=== PATIENT | male | born 1965 | race African-American/Black ===

== ENCOUNTER 2017-07-26 22:40 | Inpatient (IN) | payer SELFPAY ==
[2017-07-26 22:58] VITALS: BMI 35.5
[2017-07-26] MEDS ORDERED: ALBUTEROL SO4 2.5/IPRATROPIUM 0.5 INH SOL 3 ML VIAL.NEB. NEB ONE (23:41)
[2017-07-26] MEDS ORDERED: predniSONE 20 MG TABLET (UD) PO ONE (23:43)
--- NOTE | 2017-07-26 23:43 | PDOC ---
Attending Attestation - Resident Resident Name: Bin Jacobsen - ED Attending Attestation I have performed the following: I have examined & evaluated the patient, The case was reviewed & discussed with the resident, I agree w/resident's findings & plan, Exceptions are as noted - HPI HPI: 07/27/17 01:32 52 yo male p/w low grade fever,productive cough so forceful he vomits. Low grade temp social history +tobacco ,5 cigs daily, drnks etoh daily 07/27/17 16:38 52 yo male p/w severe persistent cough resulting in vomiting -HEENT wnl neck -supple lungs rhochi,scattered wheeze upon initial presentation cvs tachycardia abd soft,nontender ext no edema neuro axox3 ,no gross focal neuro deficits - Physicial Exam PE: 07/27/17 01:35 52 yo male post tussis vomiting lungs +wheezing,rhonchi cvs tachcardia abd nontender ext no deformities neuro alert,ambulatory - Medical Decision Making 07/27/17 01:42 pt received resp treatments and improved,he has leukocytosis and severe coughing , left base infiltrates and will be admitted
[2017-07-26] MEDS ORDERED: ONDANSETRON 4 MG/2 ML VIAL IVPUSH ONE (23:45)
[2017-07-26] MEDS ORDERED: ONDANSETRON 4 MG/2 ML VIAL ONE (23:58)
[2017-07-26] MEDS ORDERED: predniSONE 20 MG TABLET (UD) ONE (23:58)
[2017-07-27 00:08] LABS: BASOPHIL 0.7 % (0-2.0); EOSINOPHIL 2.3 % (0-4.5); MCHC 33.6 g/dl (32.0-35.9); MEAN CELL VOLUME 92.3 fl (80-96); NEUTROPHILS 74.4 % (42.8-82.8); PLATELET COUNT 259 K/MM3 (134-434); RDW 13.7 % (11.9-15.9); WHITE BLOOD COUNT 16.4 K/mm3 (4.0-10.0)
[2017-07-27 00:23] LABS: ALBUMIN 3.5 g/dl (3.4-5.0); ANION GAP 11 (8-16); BILIRUBIN,TOTAL 0.6 mg/dL (0.2-1.0); CALCIUM 8.9 mg/dL (8.5-10.1); CO2 25 mmol/L (21-32); CREATININE 1.3 mg/dL (0.7-1.3); GLUCOSE,RANDOM 142 mg/dL (74-106); SGOT/AST 15 U/L (15-37); SGPT/ALT 26 U/L (12-78); TOT PROT 6.9 g/dl (6.4-8.2)
[2017-07-27 00:24] LABS: ALK PHOS 98 U/L (45-117)
--- NOTE | 2017-07-27 00:25 | PDOC ---
History of Present Illness - General Chief Complaint: Shortness of Breath Stated Complaint: ASTHMA/DIFFICULTY BREATHING Time Seen by Provider: 07/26/17 23:34 History Source: Patient Exam Limitations: No Limitations - History of Present Illness Initial Comments: 07/27/17 00:23 Patient is a 52M with history of etoh abuse and asthma here today complaining of shortness of breath with cough for the past 2 days. He says that he's coughed so much that he's vomited and has associated vomiting, chest pain and abdominal pain. He denies fevers and chills. He says that he took albuterol which provided temporary relief. He states that his advair was effective at preventing his asthma attacks, but he's run out of his medications and does not have a PCP. He states that he drinks 8 beers per day. He denies history of withdrawal and seizures. He denies other drug use. Past History - Past Medical History Allergies/Adverse Reactions: Allergies Allergy/AdvReac Type Severity Reaction Status Date / Time No Known Allergies Allergy Verified 07/26/17 22:55 Asthma: Yes - Suicide/Smoking/Psychosocial Hx Smoking History: Current some day smoker Number of Cigarettes Smoked Daily: 5 Information on smoking cessation initiated: No Hx Alcohol Use: No Drug/Substance Use Hx: No Substance Use Type: None Review of Systems - Review of Systems Comments:: 07/27/17 01:49 GENERAL/CONSTITUTIONAL: No fever or chills. No weakness. HEAD, EYES, EARS, NOSE AND THROAT: No change in vision. No ear pain or discharge. No sore throat. CARDIOVASCULAR: Positive for chest pain and shortness of breath RESPIRATORY: Positive for cough and wheezing, negative for hemoptysis GASTROINTESTINAL: Positive for vomiting. Negative for diarrhea or constipation. GENITOURINARY: No dysuria, frequency, or change in urination. SKIN: No rash NEUROLOGIC: No headache, vertigo, loss of consciousness, or change in strength/ sensation. ENDOCRINE: No increased thirst. No abnormal weight change ALLERGIC/IMMUNOLOGIC: No hives or skin allergy. *Physical Exam - Vital Signs Last Vital Signs Temp Pulse Resp BP Pulse Ox 99.6 F 121 H 22 119/62 97 07/26/17 22:56 07/26/17 22:56 07/26/17 22:56 07/26/17 22:56 07/26/17 22:56 - Physical Exam Comments: 07/27/17 01:51 GENERAL: Awake, alert, and fully oriented, in moderate respiratory distress HEAD: No signs of trauma, normocephalic, atraumatic EYES: PERRLA, EOMI, sclera anicteric, conjunctiva clear ENT: Auricles normal inspection, hearing grossly normal, nares patent, oropharynx clear without exudates. Moist mucosa NECK: Normal ROM, supple, no lymphadenopathy, JVD, or masses LUNGS: Moderate respiratory distress, speaks full sentences, decreased breath sounds bilaterally HEART: Regular rate and rhythm, normal S1 and S2, no murmurs, rubs or gallops, peripheral pulses normal and equal bilaterally. ABDOMEN: Soft, nontender, normoactive bowel sounds. No guarding, no rebound. No masses EXTREMITIES: Normal inspection, Normal range of motion, no edema. No clubbing or cyanosis. NEUROLOGICAL: Cranial nerves II through XII grossly intact. Normal speech, no focal sensorimotor deficits SKIN: Warm, Dry, normal turgor, no rashes or lesions noted. ED Treatment Course - LABORATORY CBC & Chemistry Diagram: 07/26/17 23:45 07/26/17 23:45 - ADDITIONAL ORDERS Additional order review: 07/26/17 23:45 RBC 4.47 MCV 92.3 MCHC 33.6 RDW 13.7 MPV 8.0 Neutrophils % 74.4 Lymphocytes % 11.0 Monocytes % 11.6 H Eosinophils % 2.3 Basophils % 0.7 - RADIOLOGY Radiology Studies Ordered: Category Date Time Status CHEST X-RAY PORTABLE* [RAD] Stat Radiology 07/26/17 23:41 Taken - Medications Given in the ED: ED Medications Discontinued Medications Generic Name Dose Route Start Last Admin Trade Name Freq PRN Reason Stop Dose Admin Albuterol/Ipratropium 1 amp 07/26/17 23:41 07/26/17 23:56 Duoneb - NEB 07/26/17 23:42 1 amp ONCE ONE Administration Ondansetron HCl 4 mg 07/26/17 23:45 07/27/17 00:19 Zofran Injection IVPUSH 07/26/17 23:46 4 mg ONCE ONE Administration Medical Decision Making - Medical Decision Making 07/27/17 01:52 52M with history of asthma and alcohol abuse here today complaining of shortness of breath. Tachycardic, satting 93% on room air during examination, audibly wheezing. Had episode of vomiting while in the department after coughing. Differential diagnosis includes, but is not limited to: asthma exacerbation, pneumonia, bronchitis. Given steroid, duonebs, zofran. CXR shows hyperinflation of lungs with lower left lung infiltrate. Given azithromycin and ceftriaxone. Patient is improved after getting duonebs. ECG shows sinus tachycardia, t wave inversions in II, III, aVF, V4-V6. 07/27/17 01:59 Laboratory Tests 07/26/17 23:45 WBC 16.4 H Hgb 13.9 Hct 41.3 Plt Count 259 CBC shows white count, CMP is normal. *DC/Admit/Observation/Transfer Diagnosis at time of Disposition: Pneumonia - Discharge Dispostion Condition at time of disposition: Stable Admit: Yes
[2017-07-27] MEDS: ALBUTEROL SO4 2.5/IPRATROPIUM 0.5 INH SOL 3 ML VIAL.NEB. NEB SCH ×2 (00:29→00:50)
[2017-07-27] MEDS ORDERED: CEFTRIAXONE 1 GM in DEXTROSE 5%-WATER - 50 ML IVPB ONE (00:47)
[2017-07-27] MEDS ORDERED: AZITHROMYCIN 500 MG TABLET PO ONE (00:47)
[2017-07-27] MEDS ORDERED: CEFTRIAXONE 50 ML ONE (00:51)
[2017-07-27] MEDS ORDERED: ACETAMINOPHEN 500 MG TABLET (FP) PO ONE (01:33)
--- NOTE | 2017-07-27 02:07 | PN ---
Teaching Attending Note Name of Resident: Abelardo Pelaez ATTENDING PHYSICIAN STATEMENT I saw and evaluated the patient. I reviewed the resident's note and discussed the case with the resident. I agree with the resident's findings and plan as documented. SUBJECTIVE: 52 M with hx of asthma who presents with shortness of breath, cough and post- tussive emesis. No chest pain or pressure. OBJECTIVE: Physical: VS: Vital Signs Period Temp Pulse Resp BP Sys/Curran Pulse Ox Last 24 Hr 99.6 F 121 22 119/62 97 GEN: NAD, Resting in bed, able to speak full sentences HEENT: NCAT, PERRL, Throat without erythema or exudates CARD: RRR S1, S2 RESP: Diffuse Ronchi all trimble ABD: BS X4, NTD to palpation EXT: - C/C/E CBCD WBC 16.4 K/mm3 (4.0-10.0) H 07/26/17 23:45 RBC 4.47 M/mm3 (4.00-5.60) 07/26/17 23:45 Hgb 13.9 GM/dL (11.7-16.9) 07/26/17 23:45 Hct 41.3 % (35.4-49) 07/26/17 23:45 MCV 92.3 fl (80-96) 07/26/17 23:45 MCHC 33.6 g/dl (32.0-35.9) 07/26/17 23:45 RDW 13.7 % (11.9-15.9) 07/26/17 23:45 Plt Count 259 K/MM3 (134-434) 07/26/17 23:45 MPV 8.0 fl (7.5-11.1) 07/26/17 23:45 CMP Sodium 138 mmol/L (136-145) 07/26/17 23:45 Potassium 3.6 mmol/L (3.5-5.1) 07/26/17 23:45 Chloride 102 mmol/L (98-107) 07/26/17 23:45 Carbon Dioxide 25 mmol/L (21-32) 07/26/17 23:45 Anion Gap 11 (8-16) 07/26/17 23:45 BUN 17 mg/dL (7-18) 07/26/17 23:45 Creatinine 1.3 mg/dL (0.7-1.3) 07/26/17 23:45 Creat Clearance w eGFR 57.75 (>60) 07/26/17 23:45 Random Glucose 142 mg/dL (74-106) H 07/26/17 23:45 Calcium 8.9 mg/dL (8.5-10.1) 07/26/17 23:45 Total Bilirubin 0.6 mg/dL (0.2-1.0) 07/26/17 23:45 AST 15 U/L (15-37) 07/26/17 23:45 ALT 26 U/L (12-78) 07/26/17 23:45 Alkaline Phosphatase 98 U/L (45-117) 07/26/17 23:45 Total Protein 6.9 g/dl (6.4-8.2) 07/26/17 23:45 Albumin 3.5 g/dl (3.4-5.0) 07/26/17 23:45 CXR: ? LLL infilterate- Await final read EKG: NSR, TWI lateral leads ASSESSMENT AND PLAN: 52 M with hx of asthma who presents with shortness of breath being admitted for acute exacerbation of asthma 1.) Acute Exacerbation of Asthma - Nebs ATC and Prn - C/W Prednisone 60 daily and then taper - c/w Home meds - S/P mag in ED - Peak Flow 2.) Pneumonia ? Possible LLL infilterate DDx:? Pertusis - Less likely Sepsis as pt. is on steriod taper (Tachy from neb) - Cef and Azithro given in ED - Would hold off on more abx 3.) EULALIA - Gentle Hydration - Trend 5.) Dvt PPx - Low Risk - SCD Place iN Obs
[2017-07-27] MEDS ORDERED: AZITHROMYCIN 250 MG TABLET ONE (02:43)
[2017-07-27] MEDS ORDERED: ACETAMINOPHEN 325 MG TABLET (FP) ONE (02:43)
[2017-07-27 02:46] LABS: TROPONIN I 0.02 ng/ml (0.00-0.05)
[2017-07-27] MEDS ORDERED: ALBUTEROL SO4 0.042% IH SOL 1.25 MG/3 ML VIAL.NEB NEB PRN (03:08)
--- NOTE | 2017-07-27 03:10 | HP ---
CHIEF COMPLAINT: " Worsening cough and sob x2 days" PCP: None HISTORY OF PRESENT ILLNESS: Patient is a 52 year old Male with past medical history of alcohol abuse and asthma who was recently treated at [facility] for acute exacerbation of asthma and pneumonia (per pt) presented to the ED with similar complaint he had one month ago with worsening shortness of breath and productive cough since 2 days. As per the patient, he had similar complaint about a month ago, went to [facility], where he was admitted for a week, was discharged home on prednisone taper, didn't get better, went back to [facility] and was admitted for another week and was discharged about 2 weeks ago. Since the discharge he felt a lot better but for the past 2 days he has been having shortness of breath even at rest, not relieved with albuterol inhaler and prednisone (doesn't know how much tapering dose he is on). Also complaints of cough x 2 days which has been hacking in nature, producing whitish/yellowish sputum. Coughing has been so persistent that he vomited before coming to the ED and vomited x 3 times in the ED. Vomitus contained mainly food particles, non bilious, non bloody. Denies abdominal pain, chest pain, palpitation, fever, chills, rigors or sweating. Also has burning urination and increased frequency. Urinal at bedside and the color looks dark but no gross hematuria. Has h/o constipation. Appetite decreased and sleep disturbed since illness. ER course was notable for: (1) Temp-99.6 F; Tachycardia 121 bpm; WBC 16.4, Troponin x 1 negative (2) ECG: sinus tachycardia, T wave inversions in II, III, aVF and V4-V6. (3) IV Ceftriaxone, Prednisone 60mg PO, Duoneb and Azithromycin 500mg PO Recent Travel: None PAST MEDICAL HISTORY: alcohol abuse and asthma (never been intubated but hospitalized) PAST SURGICAL HISTORY: None Social History: Smoking: Smokes around 5-6 sticks/day since many years (doesn't remember since how many years) Alcohol: 6 beers/day since many years, CAGE 0/4, not in withdrawal. Drugs: Denies Family History: Unknown Allergies No Known Allergies Allergy (Verified 07/26/17 22:55) HOME MEDICATIONS: REVIEW OF SYSTEMS CONSTITUTIONAL: Present: loss of appetite Absent: fever, chills, diaphoresis, generalized weakness, malaise, , weight change HEENT: Absent: rhinorrhea, nasal congestion, throat pain, throat swelling, difficulty swallowing, mouth swelling, ear pain, eye pain, visual changes CARDIOVASCULAR: Absent: chest pain, syncope, palpitations, irregular heart rate, lightheadedness , peripheral edema RESPIRATORY: Present: cough, shortness of breath, dyspnea with exertion, Absent: orthopnea, wheezing, stridor, hemoptysis GASTROINTESTINAL: Absent: abdominal pain, abdominal distension, nausea, vomiting, diarrhea, constipation, melena, hematochezia GENITOURINARY: Absent: dysuria, frequency, urgency, hesitancy, hematuria, flank pain, genital pain MUSCULOSKELETAL: Absent: myalgia, arthralgia, joint swelling, back pain, neck pain SKIN: Absent: rash, itching, pallor HEMATOLOGIC/IMMUNOLOGIC: Absent: easy bleeding, easy bruising, lymphadenopathy, frequent infections ENDOCRINE: Absent: unexplained weight gain, unexplained weight loss, heat intolerance, cold intolerance NEUROLOGIC: Absent: headache, focal weakness or paresthesias, dizziness, unsteady gait, seizure, mental status changes, bladder or bowel incontinence PSYCHIATRIC: Absent: anxiety, depression, suicidal or homicidal ideation, hallucinations. PHYSICAL EXAMINATION Vital Signs - 24 hr 07/26/17 22:56 Temperature 99.6 F Pulse Rate 121 H Respiratory 22 Rate Blood Pressure 119/62 O2 Sat by Pulse 97 Oximetry (%) GENERAL: Patient is sitting comfortably in bed, Awake, alert, and fully oriented , in no acute distress, can speak a full sentence. HEAD: Normal with no signs of trauma. EYES: EOM intact, no pallor or icterus. EARS, NOSE, THROAT: Ears normal. Moist mucous membranes. NECK: Supple. LUNGS: B/L Breath sounds equal, coarse breath sounds bilaterally. No wheezes, and no crackles. No accessory muscle use. HEART: Tachycardic, Regular rate and rhythm, normal S1 and S2 without murmur. ABDOMEN: Soft, nontender, not distended, normoactive bowel sounds, no guarding, no rebound, no masses. No hepatomegaly or splenomegaly. MUSCULOSKELETAL: Normal range of motion at all joints. No bony deformities or tenderness. No CVA tenderness. UPPER EXTREMITIES: 2+ pulses, warm, well-perfused. No cyanosis. No clubbing. No peripheral edema. LOWER EXTREMITIES: 2+ pulses, warm, well-perfused. No calf tenderness. No peripheral edema. NEUROLOGICAL: No facial droop, power 5/5 in all extremities, reflexes intact, Cranial nerves II-XII intact. Normal speech. Gait not observed. PSYCHIATRIC: Cooperative. Good eye contact. Appropriate mood and affect. SKIN: Vitiligo; Warm, dry, normal turgor, no rashes or lesions noted, normal capillary refill. Laboratory Results - last 24 hr 07/26/17 07/26/17 07/27/17 23:45 23:45 02:12 WBC 16.4 H RBC 4.47 Hgb 13.9 Hct 41.3 MCV 92.3 MCH 31.0 MCHC 33.6 RDW 13.7 Plt Count 259 MPV 8.0 Neutrophils % 74.4 Lymphocytes % 11.0 Monocytes % 11.6 H Eosinophils % 2.3 Basophils % 0.7 Sodium 138 Potassium 3.6 Chloride 102 Carbon Dioxide 25 Anion Gap 11 BUN 17 Creatinine 1.3 Creat Clearance w eGFR 57.75 Random Glucose 142 H Calcium 8.9 Total Bilirubin 0.6 AST 15 ALT 26 Alkaline Phosphatase 98 Creatine Kinase 252 Troponin I 0.02 Total Protein 6.9 Albumin 3.5 ASSESSMENT/PLAN: Patient is a 52 year old Male with past medical history of alcohol abuse and asthma who was recently treated at [facility] presented to the ED with similar complaint he had one month ago with worsening shortness of breath and productive cough since 2 days. # Acute exacerbation of Asthma likely secondary to Hospital acquired pneumonia Presented with worsening cough, sob, was admitted for 2 weeks in [facility] for similar complaints and discharged 2 weeks ago,on prednisone taper On arrival, Temp-99.6 F; Tachycardia 121 bpm; WBC 16.4 CXR- Likely has Left lower lobe infiltrate, official read pending Placed in Med-Surg obs In the ED received IV Ceftriaxone and Azithromycin, will continue the same abx and change tomorrow if he doesn't seem to be better. Leukocytosis likely reactive due to steroid use Albuterol Neb Q4H PRN Adavir 1puff BID (pt says he takes it at home and ran out) Prednisone 60mg tomorrow and to taper Peak expiratory flow CXR to be repeated in am. Needs pulmonary follow up as outpatient for asthma Blood culture pending Flu swab pending # Alcohol abuse CIWA score-1; CAGE 0/4 Pt says he is not in withdrawal. But if he has symptoms, will put him in [facility] protocol Alcohol cessation counseling # Vomiting likely due to persistent cough Will give IV Zofran 4mg Q8H PRN # Dysuria-r/o UTI UA and urine culture pending. # Lipid and A1c pending # FEN Not on IV fluids, can tolerate PO Electrolytes WNL, to be repeated in am Regular diet # Prophylaxis For DVT: On Heparin 5000 IU sq For GI: Not indicated # Code Status: Full Code # Dispo: Placed in Observation. Duration of stay likely 1-2 days. Illness, Investigation and Plan of care explained to the patient. He verbalized understanding. Case seen and discussed with Dr. Thayer. Visit type - Emergency Visit Emergency Visit: Yes ED Registration Date: 07/27/17 Care time: The patient presented to the Emergency Department on the above date and was hospitalized for further evaluation of their emergent condition. - New Patient This patient is new to me today: Yes Date on this admission: 07/27/17 - Critical Care Critical Care patient: No
[2017-07-27] MEDS ORDERED: ONDANSETRON 4 MG/2 ML VIAL IVPB PRN (03:38)
[2017-07-27 06:13] LABS: BASOPHIL 0.3 % (0-2.0); EOSINOPHIL 0.5 % (0-4.5); MCH 31.3 pg (25.7-33.7); MCHC 33.3 g/dl (32.0-35.9); MEAN CELL VOLUME 93.9 fl (80-96); MEAN PLT VOLUME 7.8 fl (7.5-11.1); NEUTROPHILS 87.3 % (42.8-82.8); PLATELET COUNT 250 K/MM3 (134-434); RDW 13.6 % (11.9-15.9); WHITE BLOOD COUNT 13.6 K/mm3 (4.0-10.0)
[2017-07-27 06:48] LABS: CHOLESTEROL 179 mg/dL (50-200)
[2017-07-27 06:50] LABS: ALBUMIN 3.4 g/dl (3.4-5.0); ANION GAP 11 (8-16); CALCIUM 8.9 mg/dL (8.5-10.1); CO2 27 mmol/L (21-32); GLUCOSE,RANDOM 228 mg/dL (74-106)
[2017-07-27 06:56] LABS: ALK PHOS 102 U/L (45-117); BILIRUBIN,TOTAL 0.9 mg/dL (0.2-1.0); CREATININE 1.2 mg/dL (0.7-1.3); SGOT/AST 14 U/L (15-37); SGPT/ALT 28 U/L (12-78); TOT PROT 7.1 g/dl (6.4-8.2)
[2017-07-27] MEDS ORDERED: SODIUM CHLORIDE 1,000 ML IV SCH (07:45)
[2017-07-27] MEDS ORDERED: PNEUMOC 13-VAL CONJ-DIP CRM/PF 0.5 ML DISP.SYRIN IM ONE (08:58)
--- NOTE | 2017-07-27 09:29 | PN ---
Progress Note (short form) - Note Progress Note: ID This is A 52 year old male from the admitted with severe couph causing vomiting for several days. He has a long history of asthma with a least 2 admissions 06/03-06/05 [facility] and briefly in May both times for asthma requiring steroids. Had HIV test neg and Hep C testing neg. CT of chest showed calcified pulmonary nodules with pleural thickening. PPD status unknown. Say he was fine until several days ago when he got a "cold" Denies weight loss TAMY night sweats. Lives with 2 roommates no one else ill. NO travel IN [place] many years. He smokes and drinks alcohol occ drug use marijuana. Selected Entries 07/26/17 07/27/17 22:56 07:00 Temperature 99.6 F 97.7 F Pulse Rate 121 H 93 H Respiratory 22 18 Rate Blood Pressure 119/62 118/69 O2 Sat by Pulse 97 Oximetry (%) HEENT negataive Lung Course rhonchi bilaterally Cor S1 S2 RR Abd Soft nontender Skin Vitiligo Microbiology Laboratory Tests 07/26/17 07/27/17 07/27/17 23:45 02:24 06:00 WBC 16.4 H 13.6 H Hgb 14.3 Plt Count 250 BUN Creatinine Creat Clearance w eGFR Lactic Acid 2.1 H* AST Alkaline Phosphatase 07/27/17 06:00 WBC Hgb Plt Count BUN 15 Creatinine 1.2 Creat Clearance w eGFR > 60 Lactic Acid AST 14 L Alkaline Phosphatase 102 Assessment Most likely exacerbation of asthma precipitated by viral URI Consider Pertussis given severity of the couph TB less likely Plan Do not feel we need to treat for hospital PNA Ceftriaxone and oral azithromcyin Influenza screen Pertussis PCR CT chest Quant gold Steroids Antonio MTZ Problem List - Problems (1) Pneumonia Code(s): J18.9 - PNEUMONIA, UNSPECIFIED ORGANISM (2) Asthma Code(s): J45.909 - UNSPECIFIED ASTHMA, UNCOMPLICATED
[2017-07-27] MEDS ORDERED: CEFTRIAXONE 1 GM in DEXTROSE 5%-WATER - 50 ML IVPB SCH (10:00)
[2017-07-27] MEDS ORDERED: PIPERACILLIN/TAZOB 3.375 GM/50 ML PRE-DOCKED IVPB SCH (10:00)
[2017-07-27] MEDS ORDERED: PIPERACILLIN/TAZOB 3.375 GM 3.375 GM in DEXTROSE 5%-WATER - 50 ML IVPB ONE (10:00)
[2017-07-27] MEDS ORDERED: AZITHROMYCIN IVPB 500 MG in DEXTROSE 5%-WATER - 250 ML IVPB SCH (10:00)
[2017-07-27] MEDS ORDERED: FLU VACCINE QUAD 60 MCG/0.5 ML (MDV 17-18) IM ONE (10:00)
[2017-07-27] MEDS ORDERED: DEXTROSE 5%-WATER - 50 ML IVPB ONE (10:09)
[2017-07-27] MEDS ORDERED: cefTRIAXone SODIUM 1 GM VIAL ONE (10:09)
[2017-07-27] MEDS: HEPARIN NA (PORCINE) 5,000 UNITS/ML 1ML VIAL SQ SCH ×4 (10:28→21:48)
[2017-07-27] MEDS: FLUTICASONE/SALMETEROL 100 MCG/50 MCG DISKUS IH SCH ×3 (10:28→21:48)
[2017-07-27] MEDS: AZITHROMYCIN 500 MG TABLET PO SCH (10:35)
[2017-07-27] MEDS: predniSONE 20 MG TABLET (UD) PO SCH (10:35)
[2017-07-27] MEDS: CEFTRIAXONE 1 GM in DEXTROSE 5%-WATER - 50 ML IVPB SCH (10:39)
--- NOTE | 2017-07-27 11:06 | EKG ---
Test Reason : Blood Pressure : / mmHG Vent. Rate : 105 BPM Atrial Rate : 105 BPM P-R Int : 142 ms QRS Dur : 084 ms QT Int : 346 ms P-R-T Axes : 069 033 -79 degrees QTc Int : 457 ms SINUS TACHYCARDIA POSSIBLE LEFT ATRIAL ENLARGEMENT T WAVE ABNORMALITY, CONSIDER INFEROLATERAL ISCHEMIA ABNORMAL ECG NO PREVIOUS ECGS AVAILABLE Confirmed by ANABELL RAMÍREZ MD ([id number]) on 07/27/2017 11:05:40 AM Referred By: Confirmed By:ANABELL RAMÍREZ MD
[2017-07-27 11:35] LABS: URINE APPEARANCE CLEAR; URINE BILIRUBIN NEGATIVE (NEGATIVE); URINE BLOOD NEGATIVE (NEGATIVE); URINE COLOR LTYELLOW; URINE GLUCOSE (UA) 3+ (NEGATIVE); URINE KETONE NEGATIVE (NEGATIVE); URINE NITRITE NEGATIVE (NEGATIVE); URINE PROTEIN NEGATIVE (NEGATIVE); URINE UROBILINOGEN NEGATIVE mg/dL (0.2-1.0)
--- NOTE | 2017-07-27 13:58 | CON.PULM ---
Consult Consult Specialty:: PULM/CCM Referred by:: AME Reason for Consultation:: SOB - History of Present Illness Chief Complaint: Progressive SOB History of Present Illness: 52 M, active tobacco smoker and occasional marijuana. Frequent alcohol intake. Reports long standing asthma, but I suspect more likely COPD. Never intubated. Many previous courses of prednisone, that he reports "always" makes him clinically improve. (+) snoring and likely history of Sleep Apnea. Recent admission to [facility] for AE of COPD and recently discharged. Reports being maintained on Advair, Ventolin, and prednisone. Reports history of CT chest in the past. (?) Old granulomatous disease. Denies hemoptysis / night sweats. Does report multiple episodes of coughing and hiccups that cause him to vomit. No significant travel history or sick contacts. - History Source History Provided By: Patient Limitations to Obtaining History: No Limitations - Past Medical History Pulmonary: Yes: Asthma, Bronchitis, Pneumonia, Other (Probable sleep apnea ). No: O2 Dependent, Previously Intubated - Alcohol/Substance Use Hx Alcohol Use: Yes (6 beers a day) - Smoking History Smoking history: Current some day smoker Have you smoked in the past 12 months: Yes Aproximately how many cigarettes per day: 5 Home Medications - Allergies Allergies/Adverse Reactions: Allergies Allergy/AdvReac Type Severity Reaction Status Date / Time No Known Allergies Allergy Verified 07/26/17 22:55 - Home Medications Home Medications: Ambulatory Orders Albuterol 2.5/Ipratropium 0.5 1 neb NEB QID PRN 07/27/17 Albuterol Sulfate [Proventil HFA Inhaler -] 2 inh IH QID 07/27/17 Review of Systems - Review of Systems Constitutional: reports: Diaphoresis, Fever, Malaise. denies: Chills, Night Sweats, Unintentional Wgt. Loss Eyes: reports: No Symptoms HENT: reports: No Symptoms Neck: reports: No Symptoms Cardiovascular: reports: Shortness of Breath. denies: Chest Pain, Edema Respiratory: reports: Cough, Snoring, SOB, SOB on Exertion, Wheezing. denies: Hemoptysis Gastrointestinal: reports: Vomiting Genitourinary: reports: No Symptoms Breasts: reports: No Symptoms Reported Musculoskeletal: reports: No Symptoms Integumentary: reports: No Symptoms Neurological: reports: No Symptoms Endocrine: reports: No Symptoms Hematology/Lymphatic: reports: No Symptoms Psychiatric: reports: No Symptoms Physical Exam Vital Sings: Vital Signs Temperature 96.6 F L 07/27/17 09:00 Pulse Rate 90 07/27/17 09:00 Respiratory Rate 20 07/27/17 09:00 Blood Pressure 135/74 07/27/17 09:00 O2 Sat by Pulse Oximetry (%) 95 07/27/17 09:04 Constitutional: Yes: No Distress, Obese Eyes: Yes: Conjunctiva Clear, EOM Intact HENT: Yes: Atraumatic, Normocephalic Neck: Yes: Supple, Trachea Midline Cardiovascular: Yes: Regular Rate and Rhythm Respiratory: Yes: Cough, Diminished, On Nasal O2, Rhonchi, Wheezes. No: Accessory Muscle Use, Stridor, Tachypnea ...Inspection: Yes: WNL ...Clubbing: No Gastrointestinal: Yes: Normal Bowel Sounds, Soft, Abdomen, Obese Renal/: Yes: WNL Musculoskeletal: Yes: WNL Extremities: Yes: WNL Edema: No Peripheral Pulses WNL: Yes Integumentary: Yes: WNL Neurological: Yes: WNL, Alert, Oriented ...Motor Strength: WNL Psychiatric: Yes: WNL, Alert, Oriented Labs: CBC, BMP 07/27/17 06:00 07/27/17 06:00 Imaging - Results Chest X-ray: Report Reviewed, Image Reviewed Problem List - Problems (1) COPD exacerbation Code(s): J44.1 - CHRONIC OBSTRUCTIVE PULMONARY DISEASE W (ACUTE) EXACERBATION (2) Shortness of breath Code(s): R06.02 - SHORTNESS OF BREATH (3) Obesity Code(s): E66.9 - OBESITY, UNSPECIFIED (4) Smoker Code(s): F17.200 - NICOTINE DEPENDENCE, UNSPECIFIED, UNCOMPLICATED (5) Chronic bronchitis Code(s): J42 - UNSPECIFIED CHRONIC BRONCHITIS Assessment/Plan PLAN: Prednisone daily O2 as needed No smoking / illicit substance use counseled Will need sleep apnea work up after discharge PFTs after stable as an outpatient Noted CT chest ordered Noted Quant Gold ordered BD TX VTE prophylaxis Noted empiric ABX Do not think Singulair would be helpful since he is more likely COPD On discharge can either discharge on Advair 250/50 BID or preferably a LAMA/ LABA combination Will follow Thank you. Dr Stratton
--- NOTE | 2017-07-27 15:07 | HOSP ---
Physical Examination Vital Signs: Vital Signs Temperature 96.6 F L 07/27/17 09:00 Pulse Rate 90 07/27/17 09:00 Respiratory Rate 20 07/27/17 09:00 Blood Pressure 135/74 07/27/17 09:00 O2 Sat by Pulse Oximetry (%) 95 07/27/17 09:04 Constitutional: Yes: No Distress HENT: Yes: Atraumatic Neck: Yes: Trachea Midline Cardiovascular: Yes: Regular Rate and Rhythm, S1, S2 Respiratory: Yes: Cough, On Nasal O2, Rhonchi, Other (course breath sounds) Gastrointestinal: Yes: Normal Bowel Sounds, Soft Extremities: Yes: WNL Edema: No Integumentary: Yes: Other (vitiligo) Neurological: Yes: Alert, Oriented, Cran Nerves II-XII Intact Psychiatric: Yes: WNL Labs: CBC, BMP 07/27/17 06:00 07/27/17 06:00 Hospitalist Encounter Assessment: Assessment: 52 year old male admitted with acute asthma exacerbation and worsening cough Plan: 1. Acute on chronic asthma exacerbation/ COPD - Likely viral syndrome exacerbating existing asthma, less likely pna - Ceftriaxone for COPD - Azithro for pertussis - CT chest ordered - Pertussis pcr, quant gold sent - Will need outpt sleep study - Prednisone 60mg daily (day 1) with taper - Continue advair, increase dose on discharge 2. ETOH abuse - No signs of withdrawal at this time
[2017-07-27 16:51] LABS: URINE LEUK ESTERASE Negative (NEGATIVE)
[2017-07-27] MEDS: SODIUM CHLORIDE 1,000 ML IV SCH ×2 (17:51→23:17)
[2017-07-27 18:53] LABS: HIV 1 & 2 AB NEGATIVE; HIV 1 AGp24 NEGATIVE
[2017-07-27] MEDS ORDERED: PT OWN MED DRAWER 7, Y5N ONE (21:40)
[2017-07-28] MEDS: HEPARIN NA (PORCINE) 5,000 UNITS/ML 1ML VIAL SQ SCH ×3 (06:24→21:23)
[2017-07-28] MEDS: SODIUM CHLORIDE 1,000 ML IV SCH (06:30)
[2017-07-28] MEDS ORDERED: SODIUM CHLORIDE 1,000 ML IV SCH (06:44)
[2017-07-28 07:24] LABS: BASOPHIL 0.2 % (0-2.0); EOSINOPHIL 0.9 % (0-4.5); MCH 30.8 pg (25.7-33.7); MCHC 33.2 g/dl (32.0-35.9); MEAN CELL VOLUME 92.7 fl (80-96); MEAN PLT VOLUME 8.4 fl (7.5-11.1); NEUTROPHILS 77.1 % (42.8-82.8); PLATELET COUNT 292 K/MM3 (134-434); RDW 13.6 % (11.9-15.9); WHITE BLOOD COUNT 14.6 K/mm3 (4.0-10.0)
[2017-07-28 08:31] LABS: ANION GAP 8 (8-16); CALCIUM 8.7 mg/dL (8.5-10.1); CO2 27 mmol/L (21-32); CREATININE 0.8 mg/dL (0.7-1.3); GLUCOSE,RANDOM 129 mg/dL (74-106)
[2017-07-28] MEDS ORDERED: DEXTROSE 5%-WATER - 50 ML IVPB ONE (10:39)
[2017-07-28] MEDS ORDERED: cefTRIAXone SODIUM 1 GM VIAL ONE (10:39)
[2017-07-28] MEDS: FLUTICASONE/SALMETEROL 100 MCG/50 MCG DISKUS IH SCH ×2 (11:06→21:22)
[2017-07-28] MEDS: predniSONE 20 MG TABLET (UD) PO SCH (11:08)
[2017-07-28] MEDS: AZITHROMYCIN 500 MG TABLET PO SCH (11:08)
[2017-07-28] MEDS: CEFTRIAXONE 1 GM in DEXTROSE 5%-WATER - 50 ML IVPB SCH (11:09)
--- NOTE | 2017-07-28 12:33 | PN ---
Progress Note (short form) - Note Progress Note: Subjective: The patient was seen and examined at the bedside, he reports feeling better today. Current Medications Generic Name Dose Route Start Last Admin Trade Name Les PRN Reason Stop Dose Admin Azithromycin 500 mg 07/27/17 10:00 07/28/17 11:08 Azithromycin PO 07/29/17 10:01 500 mg DAILY JOSE Administration Heparin Sodium (Porcine) 5,000 unit 07/27/17 06:00 07/28/17 06:24 Heparin - SQ Not Given TID JOSE Ceftriaxone Sodium 1 gm/ 50 mls @ 100 mls/hr 07/27/17 10:00 07/28/17 11:09 Dextrose IVPB 100 mls/hr DAILY JOSE Administration Sodium Chloride 1,000 mls @ 75 mls/hr 07/28/17 06:44 07/28/17 11:34 Normal Saline - IV 75 mls/hr ASDIR JOSE Administration Ondansetron HCl 4 mg 07/27/17 03:38 Zofran Injection IVPB Q4H PRN NAUSEA AND/OR VOMITING Prednisone 60 mg 07/27/17 10:00 07/28/17 11:08 Deltasone - PO 60 mg DAILY JOSE Administration Fluticasone/Salmeterol 1 puff 07/27/17 10:00 07/28/17 11:06 Advair 100mcg/50mcg - IH 1 puff BID JOSE Administration Objective: Vital Signs Period Temp Pulse Resp BP Sys/Curran Pulse Ox Last 24 Hr 97.8 F-97.9 F 85-97 18-20 116-150/71-102 Physical Exam: General: NAD, A&Ox3 Lungs: bilateral coarse rhonchi. Good inspiratory effort Heart: RRR, S1S2 Abd: Soft, non-tender, non-distended. Normoactive bowel sounds Ext: Warm, well-perfused Skin: Vitaligo Neuro: CN 2-12 intact CBCD WBC 14.6 K/mm3 (4.0-10.0) H 07/28/17 06:00 RBC 4.49 M/mm3 (4.00-5.60) 07/28/17 06:00 Hgb 13.8 GM/dL (11.7-16.9) 07/28/17 06:00 Hct 41.6 % (35.4-49) 07/28/17 06:00 MCV 92.7 fl (80-96) 07/28/17 06:00 MCHC 33.2 g/dl (32.0-35.9) 07/28/17 06:00 RDW 13.6 % (11.9-15.9) 07/28/17 06:00 Plt Count 292 K/MM3 (134-434) 07/28/17 06:00 MPV 8.4 fl (7.5-11.1) 07/28/17 06:00 CMP Sodium 138 mmol/L (136-145) 07/28/17 06:00 Potassium 4.0 mmol/L (3.5-5.1) 07/28/17 06:00 Chloride 103 mmol/L (98-107) 07/28/17 06:00 Carbon Dioxide 27 mmol/L (21-32) 07/28/17 06:00 Anion Gap 8 (8-16) 07/28/17 06:00 BUN 16 mg/dL (7-18) 07/28/17 06:00 Creatinine 0.8 mg/dL (0.7-1.3) D 07/28/17 06:00 Creat Clearance w eGFR > 60 (>60) 07/27/17 06:00 Random Glucose 129 mg/dL (74-106) H D 07/28/17 06:00 Calcium 8.7 mg/dL (8.5-10.1) 07/28/17 06:00 Total Bilirubin 0.9 mg/dL (0.2-1.0) D 07/27/17 06:00 AST 14 U/L (15-37) L 07/27/17 06:00 ALT 28 U/L (12-78) 07/27/17 06:00 Alkaline Phosphatase 102 U/L (45-117) 07/27/17 06:00 Total Protein 7.1 g/dl (6.4-8.2) 07/27/17 06:00 Albumin 3.4 g/dl (3.4-5.0) 07/27/17 06:00 CARDIAC ENZYMES Creatine Kinase 252 IU/L (39-308) 07/27/17 02:12 Troponin I 0.02 ng/ml (0.00-0.05) 07/27/17 02:12 Microbiology 07/27/17 10:10 Blood - Peripheral Venous TB Test (QFT) (MAY) - Preliminary 07/27/17 09:25 Urine - Urine Clean Catch Urine Culture - Final NO GROWTH OBTAINED 07/27/17 02:24 Blood - Peripheral Venous Blood Culture - Preliminary NO GROWTH OBTAINED AFTER 24 HOURS, INCUBATION TO CONTINUE FOR 4 DAYS. 07/27/17 02:24 Blood - Peripheral Venous Blood Culture - Preliminary NO GROWTH OBTAINED AFTER 24 HOURS, INCUBATION TO CONTINUE FOR 4 DAYS. 07/27/17 09:00 Nasopharyngeal Swab Influenza Types A,B Antigen (MAY) - Final 07/27/17 09:00 Nasopharyngeal Swab - Final Assessment: This is a 52 year old male with PMHx of alcohol abuse, asthma who presented to the ED with worsening shortness of breath and cough. Plan: 1) ID: Sepsis 2/2 possible pneumonia vs. viral URI - Chest CT with faint groundglass opacification throughout both lungs, most marked within the left lower lobe with bronchiectasis. - Continue Ceftriaxone and Azithromycin - Remains afebrile - WBC trending up, however could be component of steroid induced leukocytosis - F/u pertussis PCR - Quant gold pending - Influenza A&B negative - Appreciate ID consult 2) Pulmonary: Acute COPD exacerbation - SOB improving - Continue Prednisone 60mg po daily - Continue Advair (increase to 250/50 upon discharge) - Albuterol prn - Outpatient sleep apnea workup - Outpatient PFTs once stable - Appreciate pulmonary consult 3) GI: Large hiatal hernia - F/u outpatient surgeon for evaluation of possible repair Dilation of entire esophagus - F/u GI consult 4) F/E/N: - Monitor electrolytes - Regular diet 5) Prophylaxis: - OOB ambulating - Heparin 5,000u sq tid 6) Dispo: - Patient meets inpatient criteria and was switched this morning CODE STATUS: FULL CODE Visit type - Emergency Visit Emergency Visit: Yes ED Registration Date: 07/27/17 Care time: The patient presented to the Emergency Department on the above date and was hospitalized for further evaluation of their emergent condition. - New Patient This patient is new to me today: Yes Date on this admission: 07/28/17 - Critical Care Critical Care patient: No
[2017-07-28] MEDS ORDERED: ALBUTEROL SO4 0.083% IH SOL 2.5 MG/3 ML VIAL.NEB. NEB PRN (13:38)
--- NOTE | 2017-07-28 14:33 | PN ---
Progress Note (short form) - Note Progress Note: feels much better today no wheezing, now on prednisone cough with yellow sputum Vital Signs Period Temp Pulse Resp BP Sys/Curran Pulse Ox Last 24 Hr 97.8 F-97.9 F 85-97 18-20 116-150/71-102 95 cor-rrr lungs scattered rhonchi abd soft,nt ext no edema CBC, BMP 07/28/17 06:00 07/28/17 06:00 Microbiology 07/27/17 10:10 Blood - Peripheral Venous TB Test (QFT) (MAY) - Preliminary 07/27/17 09:25 Urine - Urine Clean Catch Urine Culture - Final NO GROWTH OBTAINED 07/27/17 02:24 Blood - Peripheral Venous Blood Culture - Preliminary NO GROWTH OBTAINED AFTER 24 HOURS, INCUBATION TO CONTINUE FOR 4 DAYS. 07/27/17 02:24 Blood - Peripheral Venous Blood Culture - Preliminary NO GROWTH OBTAINED AFTER 24 HOURS, INCUBATION TO CONTINUE FOR 4 DAYS. 07/27/17 09:00 Nasopharyngeal Swab Influenza Types A,B Antigen (MAY) - Final 07/27/17 09:00 Nasopharyngeal Swab - Final Active Medications Albuterol Sulfate (Ventolin 0.083% Nebulizer Soln -) 1 amp NEB Q6H PRN PRN Reason: SHORT OF BREATH/WHEEZING Last Admin: 07/28/17 14:16 Dose: 1 amp Azithromycin (Azithromycin) 500 mg PO DAILY [facility] Stop: 07/29/17 10:01 Last Admin: 07/28/17 11:08 Dose: 500 mg Heparin Sodium (Porcine) (Heparin -) 5,000 unit SQ TID [facility] Last Admin: 07/28/17 06:24 Dose: Not Given Ceftriaxone Sodium 1 gm/ (Dextrose) 50 mls @ 100 mls/hr IVPB DAILY [facility] Last Admin: 07/28/17 11:09 Dose: 100 mls/hr Ondansetron HCl (Zofran Injection) 4 mg IVPB Q4H PRN PRN Reason: NAUSEA AND/OR VOMITING Prednisone (Deltasone -) 60 mg PO DAILY [facility] Last Admin: 07/28/17 11:08 Dose: 60 mg Fluticasone/Salmeterol (Advair 100mcg/50mcg -) 1 puff IH BID [facility] Last Admin: 07/28/17 11:06 Dose: 1 puff a/p possible pneumonia copd exacerbation continue rocephin/zithromax f/u cultures
--- NOTE | 2017-07-28 15:45 | CONSULT ---
Consult Consult Specialty:: GI Reason for Consultation:: Abdnormac CT chest. Dilated esophagus with distal mucosal thickening - History Source History Provided By: Patient, Medical Record Limitations to Obtaining History: No Limitations - Past Medical History Pulmonary: Yes: Asthma, Bronchitis, Pneumonia, Other (Probable sleep apnea ). No: O2 Dependent, Previously Intubated Gastrointestinal: Yes: Hiatal Hernia. No: Ascites, Esophageal Varices, Gastritis, GERD, GI Bleed, Pancreatitis, Peptic Ulcer Disease Hepatobiliary: No: Cirrhosis, Cholelithiasis, Hepatitis B, Hepatitis C Heme/Onc: No: Bleeding Disorder - Past Surgical History Additional Surgical History: no hx of EGD, or colonoscopy - Alcohol/Substance Use Hx Alcohol Use: Yes (6 beers a day) - Smoking History Smoking history: Current some day smoker Have you smoked in the past 12 months: Yes Aproximately how many cigarettes per day: 5 Home Medications - Allergies Allergies/Adverse Reactions: Allergies Allergy/AdvReac Type Severity Reaction Status Date / Time No Known Allergies Allergy Verified 07/26/17 22:55 - Home Medications Home Medications: Ambulatory Orders Albuterol 2.5/Ipratropium 0.5 1 neb NEB QID PRN 07/27/17 Albuterol Sulfate [Proventil HFA Inhaler -] 2 inh IH QID 07/27/17 Family Disease History - Family Disease History Family History: Unremarkable (noncontributing) Review of Systems - Review of Systems Constitutional: reports: Unintentional Wgt. Loss (40 lb since nov 2016). denies : Chills, Night Sweats HENT: reports: Difficult Swallowing (liquids only, intermittent) Neck: denies: Lumps Respiratory: reports: Cough, SOB, SOB on Exertion, Wheezing Gastrointestinal: reports: Dysphagia (to liquids only). denies: Abdominal Pain , Bloating, Constipation, Diarrhea, Indigestion, Melena, Nausea, Rectal Bleeding , Vomiting, Vomiting Blood Musculoskeletal: denies: Back Pain Hematology/Lymphatic: denies: Excessive Bleeding, Swollen Glands Physical Exam Vital Signs: Vital Signs Temperature 97.9 F 07/28/17 15:15 Pulse Rate 92 H 07/28/17 15:15 Respiratory Rate 18 07/28/17 15:15 Blood Pressure 124/67 07/28/17 15:15 O2 Sat by Pulse Oximetry (%) 95 07/28/17 13:08 Eyes: Yes: Conjunctiva Clear HENT: Yes: Atraumatic, Normocephalic Neck: Yes: Supple. No: Lymphadenopathy Cardiovascular: Yes: Regular Rate and Rhythm Respiratory: Yes: Cough, SOB. No: Rhonchi, Stridor, Wheezes Gastrointestinal: Yes: Normal Bowel Sounds, Soft. No: Ascites, Distention, Palpable Mass, Pulsatile Mass, Tenderness, Tenderness, Epigastrium, Tenderness, Rebound Musculoskeletal: No: Joint Swelling Extremities: Yes: WNL Integumentary: No: Jaundice Neurological: Yes: Alert, Oriented Labs: CBC, BMP Vital Signs (72 hours) 07/26/17 07/27/17 07/27/17 22:56 05:15 07:00 Temperature 99.6 F 98.1 F 97.7 F Pulse Rate 121 H 93 H Pulse Rate [ 97 H Left Apical] Respiratory 22 22 18 Rate Blood Pressure 119/62 118/69 Blood Pressure 110/92 [Right Arm] O2 Sat by Pulse 97 97 Oximetry (%) 07/27/17 07/27/17 07/27/17 09:00 09:04 15:36 Temperature 96.6 F L 97.8 F Pulse Rate 90 91 H Pulse Rate [ Left Apical] Respiratory 20 18 Rate Blood Pressure 135/74 146/102 Blood Pressure [Right Arm] O2 Sat by Pulse 95 Oximetry (%) 07/27/17 07/27/17 07/28/17 17:11 21:00 07:41 Temperature 97.8 F 97.9 F 97.9 F Pulse Rate 85 92 H 89 Pulse Rate [ Left Apical] Respiratory 20 18 20 Rate Blood Pressure 116/73 120/71 134/88 Blood Pressure [Right Arm] O2 Sat by Pulse Oximetry (%) 07/28/17 07/28/17 07/28/17 09:00 13:08 15:15 Temperature 97.9 F Pulse Rate 97 H 92 H Pulse Rate [ Left Apical] Respiratory 20 18 Rate Blood Pressure 150/91 124/67 Blood Pressure [Right Arm] O2 Sat by Pulse 95 Oximetry (%) Current Medications Generic Name Dose Route Start Last Admin Trade Name Freq PRN Reason Stop Dose Admin Albuterol Sulfate 1 amp 07/28/17 13:38 07/28/17 14:16 Ventolin 0.083% Nebulizer Soln - NEB 1 amp Q6H PRN Administration SHORT OF BREATH/WHEEZING Azithromycin 500 mg 07/27/17 10:00 07/28/17 11:08 Azithromycin PO 07/29/17 10:01 500 mg DAILY JOSE Administration Heparin Sodium (Porcine) 5,000 unit 07/27/17 06:00 07/28/17 15:35 Heparin - SQ Not Given TID JOSE Ceftriaxone Sodium 1 gm/ 50 mls @ 100 mls/hr 07/27/17 10:00 07/28/17 11:09 Dextrose IVPB 100 mls/hr DAILY JOSE Administration Ondansetron HCl 4 mg 07/27/17 03:38 Zofran Injection IVPB Q4H PRN NAUSEA AND/OR VOMITING Prednisone 60 mg 07/27/17 10:00 07/28/17 11:08 Deltasone - PO 60 mg DAILY JOSE Administration Fluticasone/Salmeterol 1 puff 07/27/17 10:00 07/28/17 11:06 Advair 100mcg/50mcg - IH 1 puff BID JOSE Administration Home Medications Medication Instructions Recorded Albuterol 2.5/Ipratropium 0.5 1 neb NEB QID PRN 07/27/17 Albuterol Sulfate [Proventil HFA 2 inh IH QID 07/27/17 Inhaler -] Laboratory Tests 07/26/17 07/26/17 07/27/17 23:45 23:45 02:12 WBC 16.4 H RBC 4.47 Hgb 13.9 Hct 41.3 MCV 92.3 MCH 31.0 MCHC 33.6 RDW 13.7 Plt Count 259 MPV 8.0 Neutrophils % 74.4 Lymphocytes % 11.0 Monocytes % 11.6 H Eosinophils % 2.3 Basophils % 0.7 Sodium 138 Potassium 3.6 Chloride 102 Carbon Dioxide 25 Anion Gap 11 BUN 17 Creatinine 1.3 Creat Clearance w eGFR 57.75 Random Glucose 142 H Hemoglobin A1c % Lactic Acid Calcium 8.9 Total Bilirubin 0.6 AST 15 ALT 26 Alkaline Phosphatase 98 Creatine Kinase 252 Creatine Kinase Index 0.8 CK-MB (CK-2) 2.049 Troponin I 0.02 Total Protein 6.9 Albumin 3.5 Triglycerides Cholesterol Total LDL Cholesterol HDL Cholesterol Urine Color Urine Appearance Urine pH Ur Specific [place] Urine Protein Urine Glucose (UA) Urine Ketones Urine Blood Urine Nitrite Urine Bilirubin Urine Urobilinogen HIV 1&2 Antibody Screen HIV P24 Antigen 07/27/17 07/27/17 07/27/17 02:24 06:00 06:00 WBC 13.6 H RBC 4.59 Hgb 14.3 Hct 43.1 MCV 93.9 MCH 31.3 MCHC 33.3 RDW 13.6 Plt Count 250 MPV 7.8 Neutrophils % 87.3 H Lymphocytes % 8.8 Monocytes % 3.1 L Eosinophils % 0.5 Basophils % 0.3 Sodium 138 Potassium 4.3 Chloride 100 Carbon Dioxide 27 Anion Gap 11 BUN 15 Creatinine 1.2 Creat Clearance w eGFR > 60 Random Glucose 228 H D Hemoglobin A1c % Lactic Acid 2.1 H* Calcium 8.9 Total Bilirubin 0.9 D AST 14 L ALT 28 Alkaline Phosphatase 102 Creatine Kinase Creatine Kinase Index CK-MB (CK-2) Troponin I Total Protein 7.1 Albumin 3.4 Triglycerides Cholesterol Total LDL Cholesterol HDL Cholesterol Urine Color Urine Appearance Urine pH Ur Specific [place] Urine Protein Urine Glucose (UA) Urine Ketones Urine Blood Urine Nitrite Urine Bilirubin Urine Urobilinogen HIV 1&2 Antibody Screen HIV P24 Antigen 07/27/17 07/27/17 07/27/17 06:00 06:00 08:10 WBC RBC Hgb Hct MCV MCH MCHC RDW Plt Count MPV Neutrophils % Lymphocytes % Monocytes % Eosinophils % Basophils % Sodium Potassium Chloride Carbon Dioxide Anion Gap BUN Creatinine Creat Clearance w eGFR Random Glucose Hemoglobin A1c % 6.6 H Lactic Acid 2.1 H* Calcium Total Bilirubin AST ALT Alkaline Phosphatase Creatine Kinase Creatine Kinase Index CK-MB (CK-2) Troponin I Total Protein Albumin Triglycerides 53 Cholesterol 179 Total LDL Cholesterol 119 H HDL Cholesterol 57 Urine Color Urine Appearance Urine pH Ur Specific [place] Urine Protein Urine Glucose (UA) Urine Ketones Urine Blood Urine Nitrite Urine Bilirubin Urine Urobilinogen HIV 1&2 Antibody Screen HIV P24 Antigen 07/27/17 07/27/17 07/27/17 09:25 15:30 15:30 WBC RBC Hgb Hct MCV MCH MCHC RDW Plt Count MPV Neutrophils % Lymphocytes % Monocytes % Eosinophils % Basophils % Sodium Potassium Chloride Carbon Dioxide Anion Gap BUN Creatinine Creat Clearance w eGFR Random Glucose Hemoglobin A1c % Lactic Acid 3.0 H* Calcium Total Bilirubin AST ALT Alkaline Phosphatase Creatine Kinase Creatine Kinase Index CK-MB (CK-2) Troponin I Total Protein Albumin Triglycerides Cholesterol Total LDL Cholesterol HDL Cholesterol Urine Color Ltyellow Urine Appearance Clear Urine pH 6.0 Ur Specific [place] 1.015 Urine Protein Negative Urine Glucose (UA) 3+ H Urine Ketones Negative Urine Blood Negative Urine Nitrite Negative Urine Bilirubin Negative Urine Urobilinogen Negative HIV 1&2 Antibody Screen Negative HIV P24 Antigen Negative 07/27/17 07/28/17 07/28/17 20:00 06:00 06:00 WBC 14.6 H RBC 4.49 Hgb 13.8 Hct 41.6 MCV 92.7 MCH 30.8 MCHC 33.2 RDW 13.6 Plt Count 292 MPV 8.4 Neutrophils % 77.1 Lymphocytes % 14.3 D Monocytes % 7.5 D Eosinophils % 0.9 Basophils % 0.2 Sodium 138 Potassium 4.0 Chloride 103 Carbon Dioxide 27 Anion Gap 8 BUN 16 Creatinine 0.8 D Creat Clearance w eGFR Random Glucose 129 H D Hemoglobin A1c % Lactic Acid 2.6 H* Calcium 8.7 Total Bilirubin AST ALT Alkaline Phosphatase Creatine Kinase Creatine Kinase Index CK-MB (CK-2) Troponin I Total Protein Albumin Triglycerides Cholesterol Total LDL Cholesterol HDL Cholesterol Urine Color Urine Appearance Urine pH Ur Specific [place] Urine Protein Urine Glucose (UA) Urine Ketones Urine Blood Urine Nitrite Urine Bilirubin Urine Urobilinogen HIV 1&2 Antibody Screen HIV P24 Antigen 07/28/17 07:55 WBC RBC Hgb Hct MCV MCH MCHC RDW Plt Count MPV Neutrophils % Lymphocytes % Monocytes % Eosinophils % Basophils % Sodium Potassium Chloride Carbon Dioxide Anion Gap BUN Creatinine Creat Clearance w eGFR Random Glucose Hemoglobin A1c % Lactic Acid 1.1 Calcium Total Bilirubin AST ALT Alkaline Phosphatase Creatine Kinase Creatine Kinase Index CK-MB (CK-2) Troponin I Total Protein Albumin Triglycerides Cholesterol Total LDL Cholesterol HDL Cholesterol Urine Color Urine Appearance Urine pH Ur Specific [place] Urine Protein Urine Glucose (UA) Urine Ketones Urine Blood Urine Nitrite Urine Bilirubin Urine Urobilinogen HIV 1&2 Antibody Screen HIV P24 Antigen Imaging - Results Chest X-ray: Report Reviewed Cat Scan: Report Reviewed Problem List - Problems (1) Smoker Code(s): F17.200 - NICOTINE DEPENDENCE, UNSPECIFIED, UNCOMPLICATED (2) Dysphagia Assessment/Plan: to liquids only, intermittent Code(s): R13.10 - DYSPHAGIA, UNSPECIFIED (4) Esophageal abnormality Assessment/Plan: thickened distal esophagus with proximal dilation Code(s): K22.9 - DISEASE OF ESOPHAGUS, UNSPECIFIED (5) Esophageal hiatal hernia Code(s): K44.9 - DIAPHRAGMATIC HERNIA WITHOUT OBSTRUCTION OR GANGRENE (6) Alcohol abuse Code(s): F10.10 - ALCOHOL ABUSE, UNCOMPLICATED (7) Abnormal CT of the chest Code(s): R93.8 - ABNORMAL FINDINGS ON DIAGNOSTIC IMAGING OF BODY STRUCTURES (8) Weight loss, abnormal Code(s): R63.4 - ABNORMAL WEIGHT LOSS Assessment/Plan Abnormal imaging of the esophagus as above. R/o neoplasm, chronic reflux, peptic stricture, achalasia, etc. Acute PNA/COPD ETOH abuse Current tobacco smoker Unintentional weight loss The patient will need an EGD as soon as his pulmonary status improves and cleared by anesthesiology. This can be done on his last day of the admission, or as OP. Stop smoking, excessive ETOH discussed. F/u with GI as OP for screening colonoscopy, HCV status. Visit type - Emergency Visit Emergency Visit: No - New Patient This patient is new to me today: Yes Date on this admission: 07/28/17 - Critical Care Critical Care patient: No
--- NOTE | 2017-07-28 17:11 | PN ---
Progress Note (short form) - Note Progress Note: Breathing feels a little better today. No CP. Intake & Output 07/25/17 07/26/17 07/27/17 07/28/17 23:59 23:59 23:59 23:59 Intake Total 2510 1650 Balance 2510 1650 Weight 220 lb 220 lb Last Vital Signs Temp Pulse Resp BP Pulse Ox 97.9 F 92 H 18 124/67 95 07/28/17 15:15 07/28/17 15:15 07/28/17 15:15 07/28/17 15:15 07/28/17 13:08 Active Medications Albuterol Sulfate (Ventolin 0.083% Nebulizer Soln -) 1 amp NEB Q6H PRN PRN Reason: SHORT OF BREATH/WHEEZING Last Admin: 07/28/17 14:16 Dose: 1 amp Azithromycin (Azithromycin) 500 mg PO DAILY [facility] Stop: 07/29/17 10:01 Last Admin: 07/28/17 11:08 Dose: 500 mg Heparin Sodium (Porcine) (Heparin -) 5,000 unit SQ TID [facility] Last Admin: 07/28/17 15:35 Dose: Not Given Ceftriaxone Sodium 1 gm/ (Dextrose) 50 mls @ 100 mls/hr IVPB DAILY [facility] Last Admin: 07/28/17 11:09 Dose: 100 mls/hr Ondansetron HCl (Zofran Injection) 4 mg IVPB Q4H PRN PRN Reason: NAUSEA AND/OR VOMITING Prednisone (Deltasone -) 60 mg PO DAILY [facility] Last Admin: 07/28/17 11:08 Dose: 60 mg Fluticasone/Salmeterol (Advair 100mcg/50mcg -) 1 puff IH BID [facility] Last Admin: 07/28/17 11:06 Dose: 1 puff Constitutional: Yes: No Distress, Obese Eyes: Yes: Conjunctiva Clear, EOM Intact HENT: Yes: Atraumatic, Normocephalic Neck: Yes: Supple, Trachea Midline Cardiovascular: Yes: Regular Rate and Rhythm Respiratory: Yes: Cough, Diminished, On Nasal O2, Rhonchi, Wheezes. No: Accessory Muscle Use, Stridor, Tachypnea ...Inspection: Yes: WNL ...Clubbing: No Gastrointestinal: Yes: Normal Bowel Sounds, Soft, Abdomen, Obese Renal/: Yes: WNL Musculoskeletal: Yes: WNL Extremities: Yes: WNL Edema: No Peripheral Pulses WNL: Yes Integumentary: Yes: WNL Neurological: Yes: WNL, Alert, Oriented ...Motor Strength: WNL Psychiatric: Yes: WNL, Alert, Oriented Labs: Laboratory Results - last 24 hr 07/27/17 07/27/17 07/27/17 15:30 15:30 20:00 WBC RBC Hgb Hct MCV MCH MCHC RDW Plt Count MPV Neutrophils % Lymphocytes % Monocytes % Eosinophils % Basophils % Sodium Potassium Chloride Carbon Dioxide Anion Gap BUN Creatinine Random Glucose Lactic Acid 3.0 H* 2.6 H* Calcium HIV 1&2 Antibody Screen Negative HIV P24 Antigen Negative 07/28/17 07/28/17 07/28/17 06:00 06:00 07:55 WBC 14.6 H RBC 4.49 Hgb 13.8 Hct 41.6 MCV 92.7 MCH 30.8 MCHC 33.2 RDW 13.6 Plt Count 292 MPV 8.4 Neutrophils % 77.1 Lymphocytes % 14.3 D Monocytes % 7.5 D Eosinophils % 0.9 Basophils % 0.2 Sodium 138 Potassium 4.0 Chloride 103 Carbon Dioxide 27 Anion Gap 8 BUN 16 Creatinine 0.8 D Random Glucose 129 H D Lactic Acid 1.1 Calcium 8.7 HIV 1&2 Antibody Screen HIV P24 Antigen Problem List - Problems (1) COPD exacerbation Code(s): J44.1 - CHRONIC OBSTRUCTIVE PULMONARY DISEASE W (ACUTE) EXACERBATION (2) Shortness of breath Code(s): R06.02 - SHORTNESS OF BREATH (3) Obesity Code(s): E66.9 - OBESITY, UNSPECIFIED (4) Smoker Code(s): F17.200 - NICOTINE DEPENDENCE, UNSPECIFIED, UNCOMPLICATED (5) Chronic bronchitis Code(s): J42 - UNSPECIFIED CHRONIC BRONCHITIS Large Hiatal Hernia / thickened esophagus -> (?) Chronic Aspiration Assessment/Plan Prednisone daily O2 as needed No smoking / illicit substance use counseled Will need sleep apnea work up after discharge PFTs after stable as an outpatient BD TX VTE prophylaxis Empiric ABX On discharge can either discharge on Advair 250/50 BID or preferably a LAMA/ LABA combination Noted that he will need EGD for further evaluation of abnormal CT findings Dr Stratton Problem List - Problems (1) COPD exacerbation Code(s): J44.1 - CHRONIC OBSTRUCTIVE PULMONARY DISEASE W (ACUTE) EXACERBATION (2) Shortness of breath Code(s): R06.02 - SHORTNESS OF BREATH (3) Obesity Code(s): E66.9 - OBESITY, UNSPECIFIED (4) Smoker Code(s): F17.200 - NICOTINE DEPENDENCE, UNSPECIFIED, UNCOMPLICATED (5) Chronic bronchitis Code(s): J42 - UNSPECIFIED CHRONIC BRONCHITIS
[2017-07-29 07:35] LABS: BASOPHIL 0.2 % (0-2.0); EOSINOPHIL 1.2 % (0-4.5); MCH 31.2 pg (25.7-33.7); MCHC 33.7 g/dl (32.0-35.9); MEAN CELL VOLUME 92.6 fl (80-96); MEAN PLT VOLUME 8.1 fl (7.5-11.1); NEUTROPHILS 71.9 % (42.8-82.8); PLATELET COUNT 299 K/MM3 (134-434); RDW 13.6 % (11.9-15.9); WHITE BLOOD COUNT 10.6 K/mm3 (4.0-10.0)
[2017-07-29] MEDS: HEPARIN NA (PORCINE) 5,000 UNITS/ML 1ML VIAL SQ SCH ×3 (07:51→21:34)
[2017-07-29] MEDS ORDERED: cefTRIAXone SODIUM 1 GM VIAL ONE (09:33)
[2017-07-29] MEDS ORDERED: DEXTROSE 5%-WATER - 50 ML IVPB ONE (09:34)
[2017-07-29] MEDS ORDERED: PT OWN MED DRAWER 7, Y5N ONE ×2 (10:38→21:12)
[2017-07-29] MEDS: FLUTICASONE/SALMETEROL 100 MCG/50 MCG DISKUS IH SCH ×2 (10:47→21:34)
[2017-07-29] MEDS: AZITHROMYCIN 500 MG TABLET PO SCH (10:48)
[2017-07-29] MEDS: predniSONE 20 MG TABLET (UD) PO SCH (10:49)
[2017-07-29] MEDS: CEFTRIAXONE 1 GM in DEXTROSE 5%-WATER - 50 ML IVPB SCH (10:50)
--- NOTE | 2017-07-29 11:38 | PN ---
Physical Exam: SUBJECTIVE: Patient seen and examined at bedside. Patient states he is feeling better today; breathing is improved and productive cough mildly improved. still c/o congestion in his chest. OBJECTIVE: Vital Signs Period Temp Pulse Resp BP Sys/Curran Pulse Ox Last 24 Hr 97.2 F-98.3 F 87-92 18-20 119-151/67-97 95-96 GENERAL: The patient is awake, alert, and fully oriented, in no acute distress. HEAD: Normal with no signs of trauma. EYES: extraocular movements intact, sclera anicteric, conjunctiva clear. No ptosis. NECK: Trachea midline, full range of motion, supple. LUNGS: Breath sounds equal, rales and ronchi in all trimble, no wheezes, no crackles, no accessory muscle use. HEART: Regular rate and rhythm, S1, S2 without murmur, rub or gallop. ABDOMEN: Soft, nontender, nondistended, normoactive bowel sounds, no guarding, no rebound, no hepatosplenomegaly, no masses. EXTREMITIES: 2+ pulses, warm, well-perfused, no edema. NEUROLOGICAL: Cranial nerves II through X grossly intact. Normal speech, gait not observed. PSYCH: Normal mood, normal affect. SKIN: Warm, dry, normal turgor, no rashes or lesions noted Laboratory Results - last 24 hr 07/27/17 07/29/17 15:30 06:00 WBC 10.6 H RBC 4.49 Hgb 14.0 Hct 41.6 MCV 92.6 MCH 31.2 MCHC 33.7 RDW 13.6 Plt Count 299 MPV 8.1 Neutrophils % 71.9 Lymphocytes % 19.5 D Monocytes % 7.2 Eosinophils % 1.2 Basophils % 0.2 Hepatitis C Antibody 0.1 Active Medications Generic Name Dose Route Start Last Admin Trade Name Freq PRN Reason Stop Dose Admin Albuterol Sulfate 1 amp 07/28/17 13:38 07/28/17 14:16 Ventolin 0.083% Nebulizer Soln - NEB 1 amp Q6H PRN Administration SHORT OF BREATH/WHEEZING Heparin Sodium (Porcine) 5,000 unit 07/27/17 06:00 07/29/17 07:51 Heparin - SQ Not Given TID JOSE Ceftriaxone Sodium 1 gm/ 50 mls @ 100 mls/hr 07/27/17 10:00 07/29/17 10:50 Dextrose IVPB 100 mls/hr DAILY JOSE Administration Ondansetron HCl 4 mg 07/27/17 03:38 Zofran Injection IVPB Q4H PRN NAUSEA AND/OR VOMITING Prednisone 60 mg 07/27/17 10:00 07/29/17 10:49 Deltasone - PO 60 mg DAILY JOSE Administration Fluticasone/Salmeterol 1 puff 07/27/17 10:00 07/29/17 10:47 Advair 100mcg/50mcg - IH 1 puff BID JOSE Administration ASSESSMENT/PLAN: Patient is a 52 year old Male with past medical history of alcohol abuse and asthma who was converted from obs to inpatient for possible sepsis 2/2 pneumonia. # Sepsis 2/2 possible pneumonia vs. viral URI - Chest CT showing ground-glass opacifications throughout both lungs. - Continue Ceftriaxone and Azithromycin - Remains afebrile; breathing improved today - pertussis PCR pending - Quant gold pending - Influenza A&B negative - ID agrees with current abx # Acute COPD exacerbation - SOB improving - Continue Prednisone 60mg po daily - Continue Advair (increase to 250/50 upon discharge) - Albuterol prn - Outpatient sleep apnea workup - Outpatient PFTs once stable # Hiatal hernia - F/u as outpatient for possible repair - GI: patient will need EGD either inpatient or outpatient #vomiting likely posttussive -IV zofran PRN #FEN -no indication for fluids -Monitor electrolytes -Regular diet # Prophylaxis: - Heparin 5,000u sq tid # Dispo: -for discharge tomorrow if patient remains stable Visit type - Emergency Visit Emergency Visit: Yes ED Registration Date: 07/27/17 Care time: The patient presented to the Emergency Department on the above date and was hospitalized for further evaluation of their emergent condition. - New Patient This patient is new to me today: No - Critical Care Critical Care patient: No
--- NOTE | 2017-07-29 12:07 | PN ---
Progress Note (short form) - Note Progress Note: continues to cough Vital Signs Period Temp Pulse Resp BP Sys/Curran Pulse Ox Last 24 Hr 97.2 F-98.3 F 87-92 18-20 119-151/67-97 95-96 cor-rrr llungs clear abd soft,nt ext no edema CBC, BMP 07/29/17 06:00 07/28/17 06:00 Microbiology 07/27/17 02:24 Blood - Peripheral Venous Blood Culture - Preliminary NO GROWTH OBTAINED AFTER 48 HOURS, INCUBATION TO CONTINUE FOR 3 DAYS. 07/27/17 02:24 Blood - Peripheral Venous Blood Culture - Preliminary NO GROWTH OBTAINED AFTER 48 HOURS, INCUBATION TO CONTINUE FOR 3 DAYS. 07/28/17 14:56 Nasopharyngeal Swab Bordetella pertussis DNA (PCR) (MAY - Preliminary 07/28/17 14:56 Nasopharyngeal Swab Bordetella paraper/pertuss DNA (PCR - Preliminary 07/27/17 10:10 Blood - Peripheral Venous TB Test (QFT) (MAY) - Preliminary 07/27/17 09:25 Urine - Urine Clean Catch Urine Culture - Final NO GROWTH OBTAINED 07/27/17 09:00 Nasopharyngeal Swab Influenza Types A,B Antigen (MAY) - Final 07/27/17 09:00 Nasopharyngeal Swab - Final a/p possible pneumonia copd exacerbation esophageal thickening on rocephin/zithromax no objection to switch to po ceftin when ready for discharge
[2017-07-29] MEDS ORDERED: ACETAMINOPHEN 325 MG TABLET (FP) ONE (14:06)
--- NOTE | 2017-07-29 17:57 | PN ---
Teaching Attending Note Name of Resident: Fadi Gamble ATTENDING PHYSICIAN STATEMENT I saw and evaluated the patient. I reviewed the resident's note and discussed the case with the resident. I agree with the resident's findings and plan as documented. SUBJECTIVE: OBJECTIVE: Vital Signs Period Temp Pulse Resp BP Sys/Curran Pulse Ox Last 24 Hr 98 F-98.6 F 86-100 18-20 119-151/69-97 96-96 Current Medications Generic Name Dose Route Start Last Admin Trade Name Freq PRN Reason Stop Dose Admin Albuterol Sulfate 1 amp 07/28/17 13:38 07/28/17 14:16 Ventolin 0.083% Nebulizer Soln - NEB 1 amp Q6H PRN Administration SHORT OF BREATH/WHEEZING Heparin Sodium (Porcine) 5,000 unit 07/27/17 06:00 07/29/17 13:25 Heparin - SQ Not Given TID JOSE Ceftriaxone Sodium 1 gm/ 50 mls @ 100 mls/hr 07/27/17 10:00 07/29/17 10:50 Dextrose IVPB 100 mls/hr DAILY JOSE Administration Ondansetron HCl 4 mg 07/27/17 03:38 Zofran Injection IVPB Q4H PRN NAUSEA AND/OR VOMITING Prednisone 60 mg 07/27/17 10:00 07/29/17 10:49 Deltasone - PO 60 mg DAILY JOSE Administration Fluticasone/Salmeterol 1 puff 07/27/17 10:00 07/29/17 10:47 Advair 100mcg/50mcg - IH 1 puff BID JOSE Administration ASSESSMENT AND PLAN:
[2017-07-29] MEDS ORDERED: FLU VACCINE QUAD 60 MCG/0.5 ML (MDV 17-18) IM ONE (18:52)
[2017-07-29] MEDS: guaiFENesin/D-METHORPHAN HB 10 ML UNIT-DOSE CUPS PO SCH (19:07)
[2017-07-30] MEDS: guaiFENesin/D-METHORPHAN HB 10 ML UNIT-DOSE CUPS PO SCH ×4 (00:24→18:48)
[2017-07-30] MEDS: HEPARIN NA (PORCINE) 5,000 UNITS/ML 1ML VIAL SQ SCH ×2 (06:16→14:00)
--- NOTE | 2017-07-30 07:48 | PN ---
Progress Note (short form) - Note Progress Note: No events overnight. Comfortable. No dysphagia, odynophagia, GERD symptoms All Active Problems Abnormal Lab Results 07/29/17 06:00 WBC 10.6 H Vital Signs Temperature 98.1 F 07/30/17 07:01 Pulse Rate 76 07/30/17 07:01 Respiratory Rate 20 07/30/17 07:01 Blood Pressure 133/92 07/30/17 07:01 O2 Sat by Pulse Oximetry (%) 95 07/30/17 05:00 Current Medications Generic Name Dose Route Start Last Admin Trade Name Freq PRN Reason Stop Dose Admin Albuterol Sulfate 1 amp 07/28/17 13:38 07/28/17 14:16 Ventolin 0.083% Nebulizer Soln - NEB 1 amp Q6H PRN Administration SHORT OF BREATH/WHEEZING Guaifenesin 10 ml 07/29/17 18:15 07/30/17 06:16 Robitussin Dm - PO Not Given Q6HPO JOSE Heparin Sodium (Porcine) 5,000 unit 07/27/17 06:00 07/30/17 06:16 Heparin - SQ Not Given TID JOSE Ceftriaxone Sodium 1 gm/ 50 mls @ 100 mls/hr 07/27/17 10:00 07/29/17 10:50 Dextrose IVPB 100 mls/hr DAILY JOSE Administration Ondansetron HCl 4 mg 07/27/17 03:38 Zofran Injection IVPB Q4H PRN NAUSEA AND/OR VOMITING Prednisone 60 mg 07/27/17 10:00 07/29/17 10:49 Deltasone - PO 60 mg DAILY JOSE Administration Fluticasone/Salmeterol 1 puff 07/27/17 10:00 07/29/17 21:34 Advair 100mcg/50mcg - IH 1 puff BID JOSE Administration Dysphagia (Acute) Esophageal abnormality (Acute) Esophageal dilatation (Acute) Esophageal hiatal hernia (Acute) Will need an EGD to assess the above either on the last day of the admission, or as OP Discussed with the patient Problem List - Problems (1) Esophageal abnormality Code(s): K22.9 - DISEASE OF ESOPHAGUS, UNSPECIFIED (3) Smoker Code(s): F17.200 - NICOTINE DEPENDENCE, UNSPECIFIED, UNCOMPLICATED (4) Dysphagia Code(s): R13.10 - DYSPHAGIA, UNSPECIFIED (5) Esophageal hiatal hernia Code(s): K44.9 - DIAPHRAGMATIC HERNIA WITHOUT OBSTRUCTION OR GANGRENE (6) Alcohol abuse Code(s): F10.10 - ALCOHOL ABUSE, UNCOMPLICATED (7) Abnormal CT of the chest Code(s): R93.8 - ABNORMAL FINDINGS ON DIAGNOSTIC IMAGING OF BODY STRUCTURES (8) Weight loss, abnormal Code(s): R63.4 - ABNORMAL WEIGHT LOSS Visit type - Emergency Visit Emergency Visit: No - New Patient This patient is new to me today: No - Critical Care Critical Care patient: No
--- NOTE | 2017-07-30 09:35 | PN ---
Progress Note (short form) - Note Progress Note: Breathing overall feels better. Comfortable on RA. Intake & Output 07/27/17 07/28/17 07/29/17 07/30/17 23:59 23:59 23:59 23:59 Intake Total 2510 2650 2099 Balance 251 2650 2099 Weight 220 lb Last Vital Signs Temp Pulse Resp BP Pulse Ox 97.2 F L 82 20 141/91 95 07/30/17 09:24 07/30/17 09:24 07/30/17 09:24 07/30/17 09:24 07/30/17 05:00 Active Medications Albuterol Sulfate (Ventolin 0.083% Nebulizer Soln -) 1 amp NEB Q6H PRN PRN Reason: SHORT OF BREATH/WHEEZING Last Admin: 07/28/17 14:16 Dose: 1 amp Guaifenesin (Robitussin Dm -) 10 ml PO Q6HPO [facility] Last Admin: 07/30/17 06:16 Dose: Not Given Heparin Sodium (Porcine) (Heparin -) 5,000 unit SQ TID [facility] Last Admin: 07/30/17 06:16 Dose: Not Given Ceftriaxone Sodium 1 gm/ (Dextrose) 50 mls @ 100 mls/hr IVPB DAILY [facility] Last Admin: 07/29/17 10:50 Dose: 100 mls/hr Ondansetron HCl (Zofran Injection) 4 mg IVPB Q4H PRN PRN Reason: NAUSEA AND/OR VOMITING Prednisone (Deltasone -) 60 mg PO DAILY [facility] Last Admin: 07/29/17 10:49 Dose: 60 mg Fluticasone/Salmeterol (Advair 100mcg/50mcg -) 1 puff IH BID [facility] Last Admin: 07/29/17 21:34 Dose: 1 puff Constitutional: Yes: No Distress, Obese Eyes: Yes: Conjunctiva Clear, EOM Intact HENT: Yes: Atraumatic, Normocephalic Neck: Yes: Supple, Trachea Midline Cardiovascular: Yes: Regular Rate and Rhythm Respiratory: Yes: Cough, Diminished, few scattered Rhonchi. No: Wheezes, Accessory Muscle Use, Stridor, Tachypnea ...Inspection: Yes: WNL ...Clubbing: No Gastrointestinal: Yes: Normal Bowel Sounds, Soft, Abdomen, Obese Renal/: Yes: WNL Musculoskeletal: Yes: WNL Extremities: Yes: WNL Edema: No Peripheral Pulses WNL: Yes Integumentary: Yes: WNL Neurological: Yes: WNL, Alert, Oriented ...Motor Strength: WNL Psychiatric: Yes: WNL, Alert, Oriented Labs: Problem List - Problems (1) COPD exacerbation Code(s): J44.1 - CHRONIC OBSTRUCTIVE PULMONARY DISEASE W (ACUTE) EXACERBATION (2) Shortness of breath Code(s): R06.02 - SHORTNESS OF BREATH (3) Obesity Code(s): E66.9 - OBESITY, UNSPECIFIED (4) Smoker Code(s): F17.200 - NICOTINE DEPENDENCE, UNSPECIFIED, UNCOMPLICATED (5) Chronic bronchitis Code(s): J42 - UNSPECIFIED CHRONIC BRONCHITIS Large Hiatal Hernia / thickened esophagus -> (?) Chronic Aspiration Assessment/Plan Change to Ceftin PO Short Prednisone taper O2 as needed No smoking / illicit substance use counseled Will need sleep apnea work up after discharge PFTs after stable as an outpatient Can discharge on LAMA / LABA / ICS Noted that he will need EGD for further evaluation of abnormal CT findings No Pulmonary contraindication for D/C today Dr Stratton Problem List - Problems (1) COPD exacerbation Code(s): J44.1 - CHRONIC OBSTRUCTIVE PULMONARY DISEASE W (ACUTE) EXACERBATION (2) Shortness of breath Code(s): R06.02 - SHORTNESS OF BREATH (3) Obesity Code(s): E66.9 - OBESITY, UNSPECIFIED (4) Smoker Code(s): F17.200 - NICOTINE DEPENDENCE, UNSPECIFIED, UNCOMPLICATED (5) Chronic bronchitis Code(s): J42 - UNSPECIFIED CHRONIC BRONCHITIS
[2017-07-30] MEDS ORDERED: cefTRIAXone SODIUM 1 GM VIAL ONE (10:27)
[2017-07-30] MEDS ORDERED: PT OWN MED DRAWER 7, Y5N ONE ×2 (10:27→15:12)
[2017-07-30] MEDS ORDERED: DEXTROSE 5%-WATER - 50 ML IVPB ONE (10:27)
[2017-07-30] MEDS: predniSONE 20 MG TABLET (UD) PO SCH (10:29)
[2017-07-30] MEDS: FLUTICASONE/SALMETEROL 100 MCG/50 MCG DISKUS IH SCH (10:29)
[2017-07-30] MEDS: CEFTRIAXONE 1 GM in DEXTROSE 5%-WATER - 50 ML IVPB SCH (10:30)
--- NOTE | 2017-07-30 18:13 | PN ---
Teaching Attending Note Name of Resident: Fadi Gamble ATTENDING PHYSICIAN STATEMENT I saw and evaluated the patient. I reviewed the resident's note and discussed the case with the resident. I agree with the resident's findings and plan as documented. SUBJECTIVE: OBJECTIVE: Vital Signs Period Temp Pulse Resp BP Sys/Curran Pulse Ox Last 24 Hr 97.1 F-98.1 F 76-95 18-22 133-152/74-92 95-96 Current Medications Generic Name Dose Route Start Last Admin Trade Name Freq PRN Reason Stop Dose Admin Albuterol Sulfate 1 amp 07/28/17 13:38 07/28/17 14:16 Ventolin 0.083% Nebulizer Soln - NEB 1 amp Q6H PRN Administration SHORT OF BREATH/WHEEZING Guaifenesin 10 ml 07/29/17 18:15 07/30/17 12:14 Robitussin Dm - PO 10 ml Q6HPO JOSE Administration Heparin Sodium (Porcine) 5,000 unit 07/27/17 06:00 07/30/17 14:00 Heparin - SQ Not Given TID JOSE Ceftriaxone Sodium 1 gm/ 50 mls @ 100 mls/hr 07/27/17 10:00 07/30/17 10:30 Dextrose IVPB 100 mls/hr DAILY JOSE Administration Ondansetron HCl 4 mg 07/27/17 03:38 Zofran Injection IVPB Q4H PRN NAUSEA AND/OR VOMITING Prednisone 60 mg 07/27/17 10:00 07/30/17 10:29 Deltasone - PO 60 mg DAILY JOSE Administration Fluticasone/Salmeterol 1 puff 07/27/17 10:00 07/30/17 10:29 Advair 100mcg/50mcg - IH 1 puff BID JOSE Administration ASSESSMENT AND PLAN:
[2017-07-30 18:16] VITALS: BP 132/90; PULSE 99; TEMP 98.1
--- NOTE | 2017-07-31 17:59 | DS ---
Physical Exam: SUBJECTIVE: Patient seen and examined at bedside. No new complaints. breathing continues to improve. OBJECTIVE: PHYSICAL EXAM Vital Signs Temperature 98.1 F 07/30/17 16:35 Pulse Rate 99 H 07/30/17 16:35 Respiratory Rate 20 07/30/17 16:35 Blood Pressure 132/90 07/30/17 16:35 O2 Sat by Pulse Oximetry (%) 96 07/30/17 13:00 GENERAL: The patient is awake, alert, and fully oriented, in no acute distress. HEAD: Normal with no signs of trauma. EYES: extraocular movements intact, sclera anicteric, conjunctiva clear. No ptosis. NECK: Trachea midline, full range of motion, supple. LUNGS: Breath sounds equal, rales and ronchi in all trimble, no wheezes, no crackles, no accessory muscle use. HEART: Regular rate and rhythm, S1, S2 without murmur, rub or gallop. ABDOMEN: Soft, nontender, nondistended, normoactive bowel sounds, no guarding, no rebound, no hepatosplenomegaly, no masses. EXTREMITIES: 2+ pulses, warm, well-perfused, no edema. NEUROLOGICAL: Cranial nerves II through X grossly intact. Normal speech, gait not observed. PSYCH: Normal mood, normal affect. SKIN: Warm, dry, normal turgor, no rashes or lesions noted LABS HOSPITAL COURSE: Date of Admission:07/27/17 Patient is a 52 year old Male with past medical history of ETOH abuse and asthma presented to the ED complaining of worsening shortness of breath and productive cough for 2 days. [facility] for similar complaints. In the ED, he was afebrile, but tachycardic with a leukocytosis. A CXR showed a possible infiltrate at the left base. He was admitted to observation for treatment of an asthma exacerbation. A CT of the chest showed ground glass opacifications and a large hiatal hernia with dilation and thickening of the esophagus. The patient was transferred to the inpatient service for further treatment. Infectious disease and GI were consulted. The patient was treated with nebs, prednisone, azithromycin, ceftriaxone and zosyn. The patient improved clinically on this treatment. He was discharged home on cefitin and a prednisone taper with instructions to follow up in the [facility] community clinic. He was also instructed to follow up with Dr. Donis for further evaluation of his hiatal hernia and esophageal findings. Date of Discharge: 07/31/17 Minutes to complete discharge: 20 Discharge Summary Reason For Visit: PNEUMONIA Condition: Improved - Instructions Diet, Activity, Other Instructions: You were admitted for the treatment on your acute asthma exacerbation as well as for pneumonia. There have been some changes to your home medications. We have increased your Advair to 250/50 you should take this inhaler twice per day. We have sent all of your medications to your new pharmacy, the [facility] on [facility]. Please take them as directed. You should follow up with us in our community clinic at [address] [place] [address]. We have made an appointment for you on august 12 at 1pm. You should also follow up with the GI doctor who saw you in the hospital, Dr. Donis, once you are discharged so that you can get some more tests to investigate your dilated esophagus. If you feel fevers, chills or if any of your symptoms get worse, please return to the ED. Referrals: Marvin Donis MD [Staff Physician] - Disposition: HOME - Home Medications Comprehensive Discharge Medication List: Ambulatory Orders Albuterol Sulfate [Proventil HFA Inhaler -] 2 inh IH QID #1 inh 07/30/17 Cefuroxime Axetil [Ceftin -] 500 mg PO BID #4 tablet 07/30/17 Prednisone See Protocol PO DAILY #10 tablet 07/30/17 Salmeterol/Fluticasone [Advair 250Mcg/50Mcg -] 1 inh PO BID #1 diskus 07/30/17 This patient is new to me today: No Emergency Visit: Yes ED Registration Date: 07/27/17 Care time: The patient presented to the Emergency Department on the above date and was hospitalized for further evaluation of their emergent condition. Critical Care patient: No - Discharge Referral Referred to [facility] No
== END 2017-07-30 19:20 | disposition home or self-care (01) | DRG 140 ==
LOC: JER 22:40 → JERBED 07-27 02:22 → J8W 07-27 07:41
PROVIDERS: ADMIT Internal Medicine; ATTEND Internal Medicine
DX: J44.1 Chronic obstructive pulmonary disease with (acute) exacerbation (principal); J18.9 Pneumonia, unspecified organism; F17.210 Nicotine dependence, cigarettes, uncomplicated; F10.10 Alcohol abuse, uncomplicated; N17.9 Acute kidney failure, unspecified; R11.10 Vomiting, unspecified; R30.0 Dysuria; F12.10 Cannabis abuse, uncomplicated; J06.9 Acute upper respiratory infection, unspecified; K44.9 Diaphragmatic hernia without obstruction or gangrene; R63.4 Abnormal weight loss; Z68.35 Body mass index [BMI] 35.0-35.9, adult; E66.9 Obesity, unspecified; K22.9 Disease of esophagus, unspecified
CPT/HCPCS: 36415; 71010-TC; 71250-TC; 80048; 80053; 80061; 81003; 82553; 83036; 83605; 83721; 84484; 85025; 86480; 86803; 87040; 87086; 87389; 87798; 87804; 90688; 93005; 93010; 94640; 99283-25; G0008; J1644

== ENCOUNTER 2020-10-23 17:04 | Emergency (ER) | payer SELFPAY ==
[2020-10-23 17:14] VITALS: TEMP 98.4; BMI 30.8
[2020-10-23] MEDS ORDERED: LIDOCAINE 5% TOPICAL PATCH TP ONE (17:43)
[2020-10-23] MEDS ORDERED: ACETAMINOPHEN 500 MG TABLET (FP) PO ONE (17:43)
[2020-10-23 18:12] LABS: BASO % 0.6 % (0-2.0); EOS % 8.3 % (0-4.5); HEMATOCRIT 45.2 % (35.4-49); HEMOGLOBIN 15.2 GM/dL (11.7-16.9); LYMPH % 12.5 % (8-40); MCH 31.6 pg (25.7-33.7); MCHC 33.7 g/dl (32.0-35.9); MEAN CELL VOLUME 93.7 fl (80-96); MONO % 8.2 % (3.8-10.2); NEUT % 70.4 % (42.8-82.8); PLATELET COUNT 314 K/MM3 (134-434); RBC 4.82 M/mm3 (4.00-5.60); RDW 13.3 % (11.9-15.9); WHITE BLOOD COUNT 9.9 K/mm3 (4.0-10.0)
[2020-10-23 18:19] LABS: INR 1.08 (0.83-1.09)
[2020-10-23 18:32] LABS: CHLORIDE 103 mmol/L (98-107); POTASSIUM 4.5 mmol/L (3.5-5.1); SODIUM 134 mmol/L (136-145)
[2020-10-23 18:34] LABS: ALBUMIN 3.7 g/dl (3.4-5.0); ANION GAP 6 MMOL/L (8-16); BLOOD UREA NITROGEN 15.6 mg/dL (7-18); CALCIUM 9.5 mg/dL (8.5-10.1); CO2 25 mmol/L (21-32); GLUCOSE,RANDOM 130 mg/dL (74-106)
[2020-10-23 18:37] LABS: SGOT/AST 33 U/L (15-37); SGPT/ALT 52 U/L (13-61)
[2020-10-23 18:39] LABS: BILIRUBIN,TOTAL 0.6 mg/dL (0.2-1); TOT PROT 7.8 g/dl (6.4-8.2)
[2020-10-23 18:40] LABS: ALK PHOS 129 U/L (45-117)
[2020-10-23] MEDS ORDERED: KETOROLAC TROMETHAMINE 30 MG/1 ML VIAL IVPUSH ONE (18:48)
[2020-10-23] MEDS ORDERED: KETOROLAC TROMETHAMINE 15 MG/ML VIAL ONE (19:02)
[2020-10-23] MEDS ORDERED: ACETAMINOPHEN 325 MG TABLET (FP) ONE (19:02)
[2020-10-23] MEDS ORDERED: LIDOCAINE 5% TOPICAL PATCH ONE (19:02)
[2020-10-23 19:17] VITALS: BP 145/82; PULSE 88
[2020-10-24] MEDS ORDERED: LIDOCAINE PATCH REMOVAL MC SCH (06:00)
== END 2020-10-23 19:17 | disposition home or self-care (01) ==
LOC: JER 17:04
PROC: 3E033GC Introduction of Other Therapeutic Substance into Peripheral Vein, Percutaneous Approach (ICD-10-PCS; principal; 2020-10-23)
DX: R07.89 Other chest pain (principal)
CPT/HCPCS: 36415; 71045-TC-FY; 80053; 84484; 85025; 85610; 93005; 93010; 99285-25

== ENCOUNTER 2023-06-07 15:47 | Inpatient (IN) | payer SELFPAY ==
[2023-06-07] MEDS ORDERED: ALBUTEROL SO4 2.5/IPRATROPIUM 0.5 INH SOL 3 ML VIAL.NEB. NEB ONE ×2 (16:02→16:51)
[2023-06-07] MEDS ORDERED: SODIUM CHLORIDE 1,000 ML IV STA (16:02)
[2023-06-07] MEDS ORDERED: methylPREDNISolone NA SUCC 125 MG/2 ML VIAL IVPUSH ONE (16:10)
[2023-06-07] MEDS ORDERED: methylPREDNISolone NA SUCC 125 MG/2 ML VIAL ONE (16:51)
[2023-06-07 17:30] LABS: VENOUS BASE EXCESS 1.7 mmol/L (-2-2); VENOUS O2 SATURATION 44.5 % (70-80); VENOUS PCO2 52.1 mmHg (38-52); VENOUS PH 7.355 (7.310-7.410)
[2023-06-07 17:31] LABS: HEMATOCRIT 46.3 % (35.4-49); HEMOGLOBIN 15.8 GM/dL (11.7-16.9); MCH 30.8 pg (25.7-33.7); MCHC 34.1 g/dl (32.0-35.9); MEAN CELL VOLUME 90.4 fl (80-96); MEAN PLT VOLUME 7.9 fl (7.5-11.1); PLATELET COUNT 507 10^3/uL (134-434); RBC 5.13 M/mm3 (4.00-5.60); RDW 12.9 % (11.9-15.9); WHITE BLOOD COUNT 12.8 K/mm3 (4.0-10.0)
[2023-06-07 17:54] LABS: POTASSIUM 4.7 mmol/L (3.5-5.1)
[2023-06-07 17:57] LABS: CALCIUM 9.1 mg/dL (8.5-10.1)
[2023-06-07 17:58] LABS: ALBUMIN 3.3 g/dl (3.4-5.0); BLOOD UREA NITROGEN 33.4 mg/dL (7-18); MAGNESIUM 1.8 mg/dL (1.8-2.4)
[2023-06-07 18:00] LABS: CREATININE 1.7 mg/dL (0.55-1.3)
[2023-06-07 18:01] LABS: TOT PROT 7.2 g/dl (6.4-8.2)
[2023-06-07 18:03] LABS: BILIRUBIN,TOTAL 0.2 mg/dL (0.2-1)
[2023-06-07] MEDS ORDERED: ACETAMINOPHEN 1000 MG/100 ML BAG IVPB ONE (18:23)
[2023-06-07 19:19] LABS: ANISOCYTOSIS 1+; MACROCYTOSIS 0
[2023-06-07] MEDS ORDERED: LACTATED RINGERS SOLUTION 1,000 ML/1,000 ML INFUS.BAG IV SCH (19:30)
[2023-06-07] MEDS ORDERED: AZITHROMYCIN IVPB 500 MG in DEXTROSE 5%-WATER - 250 ML IVPB ONE (19:48)
[2023-06-07] MEDS ORDERED: AZITHROMYCIN IVPB 500 MG/250 ML BAG IVPB ONE (22:14)
[2023-06-07] MEDS ORDERED: HEPARIN NA (PORCINE) 5,000 UNITS/ML 1ML VIAL ONE (22:23)
[2023-06-07] MEDS: HEPARIN NA (PORCINE) 5,000 UNITS/ML 1ML VIAL SQ SCH (22:27)
[2023-06-08] MEDS ORDERED: methylPREDNISolone NA SUCC 40 MG/1 ML VIAL ONE ×3 (02:19→17:04)
[2023-06-08] MEDS: methylPREDNISolone NA SUCC 40 MG/1 ML VIAL IVPUSH SCH ×3 (02:24→17:12)
[2023-06-08] MEDS: SODIUM CHLORIDE 1,000 ML IV SCH ×2 (02:24→22:22)
[2023-06-08] MEDS: ALBUTEROL SO4 2.5/IPRATROPIUM 0.5 INH SOL 3 ML VIAL.NEB. NEB SCH ×6 (02:24→21:03)
[2023-06-08] MEDS ORDERED: ALBUTEROL SO4 HFA INHALER IH PRN (02:37)
[2023-06-08 06:43] LABS: HEMATOCRIT 43.9 % (35.4-49); HEMOGLOBIN 14.8 GM/dL (11.7-16.9); MCH 31.1 pg (25.7-33.7); MCHC 33.7 g/dl (32.0-35.9); MEAN CELL VOLUME 92.3 fl (80-96); MEAN PLT VOLUME 8.3 fl (7.5-11.1); PLATELET COUNT 464 10^3/uL (134-434); RBC 4.76 M/mm3 (4.00-5.60); RDW 12.4 % (11.9-15.9)
[2023-06-08 07:05] LABS: POTASSIUM 4.9 mmol/L (3.5-5.1)
[2023-06-08 07:07] LABS: ALBUMIN 3.2 g/dl (3.4-5.0); BLOOD UREA NITROGEN 23.4 mg/dL (7-18); CALCIUM 9.3 mg/dL (8.5-10.1); MAGNESIUM 1.7 mg/dL (1.8-2.4)
[2023-06-08] MEDS: HEPARIN NA (PORCINE) 5,000 UNITS/ML 1ML VIAL SQ SCH ×3 (07:10→22:22)
[2023-06-08 07:11] LABS: CREATININE 1.2 mg/dL (0.55-1.3); PHOSPHOROUS 4.4 mg/dL (2.5-4.9)
[2023-06-08 07:12] LABS: BILIRUBIN,TOTAL 0.5 mg/dL (0.2-1)
[2023-06-08] MEDS ORDERED: BUDESONIDE 0.5 MG/2 ML INH SUSP VIAL NEB SCH (08:00)
[2023-06-08] MEDS ORDERED: ALBUTEROL SO4 2.5/IPRATROPIUM 0.5 INH SOL 3 ML VIAL.NEB. NEB ONE ×3 (08:13→15:45)
[2023-06-08] MEDS ORDERED: MAGNESIUM SULF 50% (8.12 MEQ/2 ML-1 GM VIAL) IVPB ONE (08:21)
[2023-06-08] MEDS ORDERED: NICOTINE 21 MG/24 HOURS TOPICAL PATCH ONE (09:56)
[2023-06-08] MEDS ORDERED: amLODIPine BESYLATE 5 MG TABLET (FP) ONE (09:56)
[2023-06-08] MEDS ORDERED: LOSARTAN POTASSIUM 50 MG TABLET ONE (09:56)
[2023-06-08] MEDS ORDERED: MAGNESIUM SULFATE IN WATER 2 GM/50 ML IVPB IVPB ONE (09:58)
[2023-06-08] MEDS ORDERED: ALBUTEROL SO4 HFA INHALER IH SCH (10:00)
[2023-06-08] MEDS: BUDESONIDE 0.5 MG/2 ML INH SUSP VIAL NEB SCH ×2 (10:08→21:03)
[2023-06-08] MEDS: NICOTINE 21 MG/24 HOURS TOPICAL PATCH TD SCH (10:09)
[2023-06-08] MEDS: LOSARTAN POTASSIUM 50 MG TABLET PO SCH (10:09)
[2023-06-08] MEDS: amLODIPine BESYLATE 5 MG TABLET (FP) PO SCH (10:09)
[2023-06-08] MEDS ORDERED: predniSONE 20 MG TABLET (UD) PO SCH (10:15)
[2023-06-08] MEDS ORDERED: HEPARIN NA (PORCINE) 5,000 UNITS/ML 1ML VIAL ONE (15:38)
[2023-06-08] MEDS ORDERED: MONTELUKAST NA 10 MG TABLET PO SCH (22:00)
[2023-06-08 22:44] VITALS: BMI 32.0
[2023-06-09] MEDS: methylPREDNISolone NA SUCC 40 MG/1 ML VIAL IVPUSH SCH ×2 (01:30→09:11)
[2023-06-09] MEDS: ALBUTEROL SO4 2.5/IPRATROPIUM 0.5 INH SOL 3 ML VIAL.NEB. NEB SCH ×6 (04:15→20:46)
[2023-06-09] MEDS: SODIUM CHLORIDE 1,000 ML IV SCH (06:28)
[2023-06-09] MEDS: HEPARIN NA (PORCINE) 5,000 UNITS/ML 1ML VIAL SQ SCH ×3 (06:30→22:14)
[2023-06-09] MEDS: BUDESONIDE 0.5 MG/2 ML INH SUSP VIAL NEB SCH ×2 (07:38→20:47)
[2023-06-09 08:45] LABS: HEMATOCRIT 42.9 % (35.4-49); HEMOGLOBIN 14.4 GM/dL (11.7-16.9); MCH 30.7 pg (25.7-33.7); MCHC 33.6 g/dl (32.0-35.9); MEAN CELL VOLUME 91.6 fl (80-96); MEAN PLT VOLUME 8.5 fl (7.5-11.1); PLATELET COUNT 475 10^3/uL (134-434); RBC 4.68 M/mm3 (4.00-5.60); RDW 12.6 % (11.9-15.9); WHITE BLOOD COUNT 19.8 K/mm3 (4.0-10.0)
[2023-06-09 08:56] LABS: POTASSIUM 4.8 mmol/L (3.5-5.1)
[2023-06-09 09:03] LABS: ALBUMIN 3.1 g/dl (3.4-5.0); BLOOD UREA NITROGEN 25.5 mg/dL (7-18); CALCIUM 9.3 mg/dL (8.5-10.1); MAGNESIUM 1.9 mg/dL (1.8-2.4)
[2023-06-09 09:05] LABS: CREATININE 1.1 mg/dL (0.55-1.3); PHOSPHOROUS 4.7 mg/dL (2.5-4.9)
[2023-06-09 09:07] LABS: BILIRUBIN,TOTAL 0.4 mg/dL (0.2-1); TOT PROT 6.7 g/dl (6.4-8.2)
[2023-06-09] MEDS: amLODIPine BESYLATE 5 MG TABLET (FP) PO SCH (09:11)
[2023-06-09] MEDS: NICOTINE 21 MG/24 HOURS TOPICAL PATCH TD SCH (09:11)
[2023-06-09] MEDS: LOSARTAN POTASSIUM 50 MG TABLET PO SCH (09:11)
[2023-06-09] MEDS ORDERED: AZITHROMYCIN IVPB 250 MG in DEXTROSE 5%-WATER - 250 ML IVPB SCH (10:00)
[2023-06-09 11:06] LABS: ANISOCYTOSIS 0; HELMET CELLS 0; HOWELL-JOLLY BODIES 0; MACROCYTOSIS 0; OVALOCYTE 0; ROULEAU 0; SICKELED CELLS 0; TARGET CELLS 0; TEAR DROP CELLS 0; TOXIC GRANULATION 0
[2023-06-09] MEDS ORDERED: ALBUTEROL SO4 HFA INHALER IH PRN (19:40)
[2023-06-10] MEDS: HEPARIN NA (PORCINE) 5,000 UNITS/ML 1ML VIAL SQ SCH ×3 (05:40→21:36)
[2023-06-10] MEDS: BUDESONIDE 0.5 MG/2 ML INH SUSP VIAL NEB SCH ×2 (07:57→20:33)
[2023-06-10] MEDS: ALBUTEROL SO4 2.5/IPRATROPIUM 0.5 INH SOL 3 ML VIAL.NEB. NEB SCH ×4 (07:57→20:32)
[2023-06-10 09:08] LABS: BASO % 0.1 % (0-2.0); EOS % 0.1 % (0-4.5); HEMATOCRIT 44.1 % (35.4-49); HEMOGLOBIN 14.9 GM/dL (11.7-16.9); LYMPH % 17.5 % (8-40); MCH 30.3 pg (25.7-33.7); MCHC 33.8 g/dl (32.0-35.9); MEAN CELL VOLUME 89.8 fl (80-96); MEAN PLT VOLUME 7.9 fl (7.5-11.1); MONO % 6.8 % (3.8-10.2); NEUT % 75.5 % (42.8-82.8); PLATELET COUNT 427 10^3/uL (134-434); RBC 4.91 M/mm3 (4.00-5.60); RDW 12.9 % (11.9-15.9); WHITE BLOOD COUNT 13.6 K/mm3 (4.0-10.0)
[2023-06-10] MEDS ORDERED: predniSONE 20 MG TABLET (UD) PO SCH (10:00)
[2023-06-10] MEDS ORDERED: ACETAMINOPHEN 325 MG TABLET (FP) PO PRN ×2 (10:10→12:03)
[2023-06-10 10:30] LABS: POTASSIUM 4.5 mmol/L (3.5-5.1)
[2023-06-10 10:46] LABS: CALCIUM 9.1 mg/dL (8.5-10.1)
[2023-06-10 10:50] LABS: CREATININE 0.9 mg/dL (0.55-1.3)
[2023-06-10] MEDS: predniSONE 20 MG TABLET (UD) PO SCH (10:51)
[2023-06-10] MEDS: amLODIPine BESYLATE 5 MG TABLET (FP) PO SCH (10:51)
[2023-06-10] MEDS: AZITHROMYCIN IVPB 250 MG in DEXTROSE 5%-WATER - 250 ML IVPB SCH (10:51)
[2023-06-10] MEDS: NICOTINE 21 MG/24 HOURS TOPICAL PATCH TD SCH ×2 (10:51→10:59)
[2023-06-10] MEDS: LOSARTAN POTASSIUM 50 MG TABLET PO SCH (10:51)
[2023-06-10] MEDS ORDERED: guaiFENesin/CODEINE 10 ML UNIT-DOSE CUPS PO PRN (11:01)
[2023-06-10] MEDS ORDERED: KETOROLAC TROMETHAMINE 15 MG/ML VIAL IVPUSH ONE (12:03)
[2023-06-11 04:07] VITALS: RESP 18
[2023-06-11] MEDS: HEPARIN NA (PORCINE) 5,000 UNITS/ML 1ML VIAL SQ SCH ×2 (07:02→13:44)
[2023-06-11] MEDS: BUDESONIDE 0.5 MG/2 ML INH SUSP VIAL NEB SCH (08:05)
[2023-06-11] MEDS: ALBUTEROL SO4 2.5/IPRATROPIUM 0.5 INH SOL 3 ML VIAL.NEB. NEB SCH ×3 (08:10→15:30)
[2023-06-11 08:56] LABS: BASO % 0.1 % (0-2.0); EOS % 0.7 % (0-4.5); HEMATOCRIT 43.8 % (35.4-49); HEMOGLOBIN 14.6 GM/dL (11.7-16.9); LYMPH % 24.1 % (8-40); MCH 30.6 pg (25.7-33.7); MCHC 33.4 g/dl (32.0-35.9); MEAN CELL VOLUME 91.5 fl (80-96); MEAN PLT VOLUME 8.4 fl (7.5-11.1); MONO % 7.9 % (3.8-10.2); NEUT % 67.2 % (42.8-82.8); PLATELET COUNT 391 10^3/uL (134-434); RBC 4.78 M/mm3 (4.00-5.60); RDW 12.4 % (11.9-15.9); WHITE BLOOD COUNT 9.5 K/mm3 (4.0-10.0)
[2023-06-11 09:20] LABS: POTASSIUM 4.4 mmol/L (3.5-5.1)
[2023-06-11 09:33] LABS: BLOOD UREA NITROGEN 23.4 mg/dL (7-18)
[2023-06-11 09:36] LABS: CREATININE 0.9 mg/dL (0.55-1.3)
[2023-06-11] MEDS: amLODIPine BESYLATE 5 MG TABLET (FP) PO SCH (10:50)
[2023-06-11] MEDS: LOSARTAN POTASSIUM 50 MG TABLET PO SCH (10:50)
[2023-06-11] MEDS: predniSONE 20 MG TABLET (UD) PO SCH (10:52)
[2023-06-11] MEDS: NICOTINE 21 MG/24 HOURS TOPICAL PATCH TD SCH ×2 (10:52→11:05)
[2023-06-11] MEDS: AZITHROMYCIN IVPB 250 MG in DEXTROSE 5%-WATER - 250 ML IVPB SCH ×2 (11:04→11:07)
[2023-06-11 11:23] VITALS: PULSE 92
[2023-06-11 14:04] VITALS: BP 110/58; TEMP 98
[2023-06-11] MEDS ORDERED: metFORMIN HCL 500 MG TABLET (FP) PO SCH (16:30)
== END 2023-06-11 17:25 | disposition home or self-care (01) | DRG 140 ==
LOC: JER 15:47 → JERBED 18:24 → J4W 06-08 20:45 → OBSVTOIN 06-09 13:25 → J5S 06-09 18:22 → J8W 06-10 20:53
PROVIDERS: ADMIT Internal Medicine; ATTEND Internal Medicine
DX: J44.1 Chronic obstructive pulmonary disease with (acute) exacerbation (principal); I10 Essential (primary) hypertension; N17.9 Acute kidney failure, unspecified; R73.9 Hyperglycemia, unspecified; G47.30 Sleep apnea, unspecified; T38.0X5A Adverse effect of glucocorticoids and synthetic analogues, initial encounter; K44.9 Diaphragmatic hernia without obstruction or gangrene; E66.9 Obesity, unspecified; Z68.32 Body mass index [BMI] 32.0-32.9, adult; F17.200 Nicotine dependence, unspecified, uncomplicated; J20.9 Acute bronchitis, unspecified; J44.0 Chronic obstructive pulmonary disease with (acute) lower respiratory infection; R07.89 Other chest pain; D75.839 Thrombocytosis, unspecified; D72.829 Elevated white blood cell count, unspecified
CPT/HCPCS: 0241U-QW; 36415; 70450-TC; 71045-TC-FY; 80048; 80053; 82803; 83036; 83735; 84100; 84484; 85025; 85027; 87633; 87798; 93005; 93010; 94640; 99285-25; G0378

== ENCOUNTER 2023-11-10 14:37 | Emergency (ER) | payer SELFPAY ==
[2023-11-10 14:51] VITALS: BMI 34.4
[2023-11-10] MEDS ORDERED: SODIUM CHLORIDE 0.9% 500 ML INFUS.BAG IV ONE (16:07)
[2023-11-10] MEDS ORDERED: methylPREDNISolone NA SUCC 125 MG/2 ML VIAL IVPUSH ONE (16:07)
[2023-11-10] MEDS ORDERED: ACETAMINOPHEN 1000 MG/100 ML BAG IVPB ONE (16:07)
[2023-11-10] MEDS ORDERED: ACETAMINOPHEN INJECTION 100 ML IVPB ONE (16:14)
[2023-11-10] MEDS ORDERED: methylPREDNISolone NA SUCC 125 MG/2 ML VIAL ONE (16:15)
[2023-11-10] MEDS: ALBUTEROL SO4 2.5/IPRATROPIUM 0.5 INH SOL 3 ML VIAL.NEB. NEB SCH ×2 (16:32→16:56)
[2023-11-10 17:00] LABS: BASO % 0.3 % (0-2.0); EOS % 3.6 % (0-4.5); HEMATOCRIT 43.1 % (35.4-49); HEMOGLOBIN 14.3 GM/dL (11.7-16.9); LYMPH % 13.5 % (8-40); MCH 30.4 pg (25.7-33.7); MCHC 33.2 g/dl (32.0-35.9); MEAN CELL VOLUME 91.5 fl (80-96); MEAN PLT VOLUME 7.7 fl (7.5-11.1); MONO % 7.3 % (3.8-10.2); NEUT % 75.3 % (42.8-82.8); PLATELET COUNT 356 10^3/uL (134-434); RBC 4.71 M/mm3 (4.00-5.60); RDW 12.9 % (11.9-15.9); WHITE BLOOD COUNT 11.9 K/mm3 (4.0-10.0)
[2023-11-10 17:22] LABS: POTASSIUM 4.4 mmol/L (3.5-5.1)
[2023-11-10 17:24] LABS: CALCIUM 9.3 mg/dL (8.5-10.1)
[2023-11-10 17:25] LABS: ALBUMIN 3.3 g/dl (3.4-5.0); BLOOD UREA NITROGEN 8.8 mg/dL (7-18)
[2023-11-10 17:28] LABS: CREATININE 0.9 mg/dL (0.55-1.3)
[2023-11-10 17:30] LABS: BILIRUBIN,TOTAL 0.9 mg/dL (0.2-1); TOT PROT 7.3 g/dl (6.4-8.2)
[2023-11-10] MEDS ORDERED: CEFTRIAXONE 1,000 MG in DEXTROSE 5%-WATER - 50 ML IVPB ONE (18:06)
[2023-11-10] MEDS ORDERED: AZITHROMYCIN IVPB 500 MG in DEXTROSE 5%-WATER - 250 ML IVPB ONE (18:07)
[2023-11-10] MEDS ORDERED: CEFTRIAXONE 1 GM/50 ML BAG ONE (18:13)
[2023-11-10] MEDS ORDERED: AZITHROMYCIN IVPB 500 MG/250 ML BAG IVPB ONE (18:14)
[2023-11-10 18:45] VITALS: BP 116/70; RESP 18; TEMP 98.5
[2023-11-10 21:17] VITALS: PULSE 78
== END 2023-11-10 21:16 | disposition home or self-care (01) ==
LOC: JER 14:37
PROC: 3E03329 Introduction of Other Anti-infective into Peripheral Vein, Percutaneous Approach (ICD-10-PCS; principal; 2023-11-10)
PROC: 3E03329 Introduction of Other Anti-infective into Peripheral Vein, Percutaneous Approach (ICD-10-PCS; 2023-11-10)
PROC: 3E033NZ Introduction of Analgesics, Hypnotics, Sedatives into Peripheral Vein, Percutaneous Approach (ICD-10-PCS; 2023-11-10)
PROC: 3E033GC Introduction of Other Therapeutic Substance into Peripheral Vein, Percutaneous Approach (ICD-10-PCS; 2023-11-10)
PROC: 3E0F7GC Introduction of Other Therapeutic Substance into Respiratory Tract, Via Natural or Artificial Opening (ICD-10-PCS; 2023-11-10)
DX: J45.909 Unspecified asthma, uncomplicated (principal); R05.9 Cough, unspecified; R06.02 Shortness of breath; R53.1 Weakness; J18.9 Pneumonia, unspecified organism; Z20.822 Contact with and (suspected) exposure to COVID-19
CPT/HCPCS: 0241U-QW; 36415; 71046-TC-FY; 80053; 84484; 85025; 93005; 93010; 99285-25

== ENCOUNTER 2024-02-09 14:40 | Emergency (ER) | payer SELFPAY ==
[2024-02-09 14:47] VITALS: BP 114/80; PULSE 99; RESP 18; TEMP 98.2; BMI 34.4
[2024-02-09] MEDS: ALBUTEROL SO4 2.5/IPRATROPIUM 0.5 INH SOL 3 ML VIAL.NEB. NEB ONE (15:24)
== END 2024-02-09 16:05 | disposition home or self-care (01) ==
LOC: JER 14:40
PROC: 3E0F7GC Introduction of Other Therapeutic Substance into Respiratory Tract, Via Natural or Artificial Opening (ICD-10-PCS; principal; 2024-02-09)
DX: R09.81 Nasal congestion (principal); R05.9 Cough, unspecified; R06.2 Wheezing; R07.89 Other chest pain; J06.9 Acute upper respiratory infection, unspecified; Z20.822 Contact with and (suspected) exposure to COVID-19
CPT/HCPCS: 0241U-QW; 99283-25